=== PATIENT | female | born 1930 | race Caucasian/White ===

== ENCOUNTER 2016-05-29 21:59 | Inpatient (IN) | payer OTHER ==
[~2016-05-29] VITALS: Ht 160 cm; Wt 76.1 kg
[~2016-05-29 21:59] MED LIST: AMIO200T4 PO; ASPCH81X PO; CALC-220 PO; CHOL1000 PO; COCO1CAP PO; CRG125 PO; LSN20 PO; MAGN1TAB41 PO; OMEG12006 PO
[2016-05-30] VITALS (8 sets, daily range): BP systolic 108–151; BP diastolic 69–86; PULSE 60–65; TEMP 36.6–37.1; O2SAT 90–98; Ht 160 cm; Wt 76.1 kg
[2016-05-30] MEDS ORDERED: METHYLPREDNISOLONE 125 MG VIAL IV STA (00:09)
[2016-05-30] MEDS ORDERED: ALBUT/IPRATROP 3MG/0.5MG NEB 3 ML VIAL INH STA (00:09)
[2016-05-30 00:46] LABS: BASO % 0.5 %; BASO ABS # 0.03 K/uL (0-0.2); COMPLETE YES; EOS % 2.1 %; HEMATOCRIT 42.9 % (37-47); IG% 0.2 %; LYMPH % 14.8 %; LYMPH ABS # 0.98 K/uL (1.2-3.4); MEAN CELL VOLUME 94.1 fL (80-100); MEAN CORPUSCULAR HEMOGLOBIN 32.2 pg (25-34); MEAN CORPUSCULAR HGB CONC 34.3 g/dl (32-36); MEAN PLATELET VOLUME 11.2 fL (7.4-10.4); MONO % 7.2 %; NEUT % 75.2 %; PLATELET COUNT 135 K/uL (130-400); RED BLOOD COUNT 4.56 M/uL (4.2-5.4); WHITE BLOOD COUNT 6.63 K/uL (4.8-10.8)
[2016-05-30] MEDS ORDERED: ASPI81TA28 PO (00:56)
[2016-05-30] MEDS ORDERED: AZITTAB PO (00:56)
[2016-05-30] MEDS ORDERED: DLSYL PO (00:56)
[2016-05-30] MEDS ORDERED: CARV12.52 PO (00:56)
[2016-05-30] MEDS ORDERED: CALC-354 PO (00:56)
[2016-05-30 01:05] LABS: BUN/CREATININE RATIO 14.8 (10-20); CALCIUM 8.9 mg/dl (8.5-10.1); CREATININE 1.4 mg/dl (0.60-1.20); MAGNESIUM 2.2 mg/dl (1.8-2.4); POTASSIUM 4.2 mmol/L (3.5-5.1)
[2016-05-30 01:10] LABS: CKMB/CK RATIO 1.7 (0-3.0)
[2016-05-30] MEDS ORDERED: FUROSEMIDE 40 MG/4 ML VIAL IV STA (01:55)
[2016-05-30] MEDS ORDERED: CARVEDILOL 12.5 MG TAB PO ONE (02:30)
--- NOTE | 2016-05-30 02:39 | EMERGENCY ROOM VISIT NOTE ---
History Report prepared by Judd: Julien Nuñez Under the Supervision of: Dr. Jessica Marrero M.D. First contact with patient: 00:01 Chief Complaint: RESPIRATORY PROBLEMS Stated Complaint: TROUBLE BREATHING Nursing Triage Summary: pt reports cold sx cough congestion , to urgent care on sun. given zpak , not feeling better , increased exertional sob History of Present Illness The patient is a 86 year old female who presents to the Emergency Room with complaints of persistent respiratory problems beginning three days ago. She also complains of a productive "wheezing" cough. She was seen at an urgent-care clinic yesterday and was discharged on a Zpak and an inhaler. The patient is unsure as to whether she has had a fever or not. Nothing has improved her symptoms and she believes that her symptoms are actually worsening. She denies any chest pain. The patient has a pacemaker in place for atrial fibrillation. She is not on any blood thinners, but states that she was previous on Coumadin over 10 years ago. Source of History: patient Onset: three days ago Quality: other (respiratory problems) Timing: worsening, other (persistent) Modifying Factors (Relieving): other (none) Associated Symptoms: + cough (productive), No chest pain Review of Systems See HPI for pertinent positives & negatives. A total of 10 systems reviewed and were otherwise negative. Past Medical & Surgical Medical Problems: (1) Apical variant hypertrophic cardiomyopathy (2) CKD (chronic kidney disease), stage III (3) Diastolic CHF, chronic (4) DJD of right shoulder (5) Dyslipidemia (6) Dyspnea (7) History of pulmonary embolism (8) History of stroke (9) History of ventricular tachycardia (10) Hypertension (11) Palpitations (12) Rotator cuff tear Surgical Problems: (1) History of right shoulder replacement (2) Status post cardiac catheterization (3) Status post cholecystectomy (4) Status post hysterectomy (5) Status post implantation of automatic cardioverter/defibrillator (AICD) Family History COPD (chronic obstructive pulmonary disease) FATHER Stroke MOTHER Social History Smoking Status: Never Smoker Drug Use: none Marital Status: Housing Status: lives with family Occupation Status: retired Current/Historical Medications Scheduled Amiodarone Hcl (Cordarone), 200 MG PO QAM Aspirin (Aspirin Ec), 81 MG PO DAILY Azithromycin (Zithromax Z-Elie), 1 PKT PO UD Calcium Carbonate-Cholecalcife (Caltrate 600+D), 1 TAB PO DAILY Carvedilol (Coreg), 12.5 MG PO BID Cholecalciferol (Vitamin D3), Unknown Dose PO DAILY Coconut Oil (Coconut Oil Organic), 1 CAP PO DAILY Furosemide (Furosemide), 20 MG PO DAILY Lisinopril (Lisinopril), 20 MG PO QAM Magnesium Oxide (Magnesium), 400 MG PO QPM [place]-3 Fatty Acids ([place] 3), 1,000 MG PO QAM Scheduled PRN Dextromethorphan Polymr Complx (Delsym), Unknown Dose PO DIRECTED PRN for Cough Allergies Coded Allergies: Penicillins (Verified Allergy, Mild, FACIAL SWELLING, 05/30/16) Levofloxacin (Verified Allergy, Unknown, ? questionable tendon issues, ) Patient feels she had tendon issues since taking Levaquin (not documented)- patient can tolerate Levaquin but prefers not to have it unless absolutely necessary Physical Exam Vital Signs Date Time Temp Pulse Resp B/P Pulse Ox O2 Delivery O2 Flow Rate FiO2 05/30/16 02:07 61 22 190/109 94 Room Air 05/30/16 00:56 60 18 203/99 89 Room Air 05/30/16 00:54 61 05/29/16 22:07 36.9 68 18 172/96 96 Room Air Physical Exam Vital signs reviewed. General: Well-appearing female, in no significant distress. HEENT: No scleral icterus, PERRLA, neck supple. Atraumatic. Cardiovascular: Regular rate and rhythm, no extra sounds. Pulmonary: Rhonchi throughout the lungs bilaterally. Dry cough noted. Abdomen: Soft, nontender, nondistended, positive bowel sounds. Musculoskeletal: Atraumatic, no peripheral edema. Neurologic: Patient awake alert and oriented x 3, full strength in all 4 extremities. Cranial nerves 2 through 12 grossly intact. Skin: Warm, dry, no rash Medical Decision & Procedures ER Provider Diagnostic Interpretation: One View Chest X-ray interpreted by me: Pacemaker in place. Left costophrenic angle is cut off. Right shoulder replacement. No focal lung consolidation. No evidence of failure. Laboratory Results Test 05/30/16 00:30 05/30/16 00:39 05/30/16 00:50 RDW Standard Deviation 56.6 fL (36.4-46.3) RDW Coefficient of Variation 16.4 % (11.5-14.5) White Blood Count 6.63 K/uL (4.8-10.8) Red Blood Count 4.56 M/uL (4.2-5.4) Hemoglobin 14.7 g/dL (12.0-16.0) Hematocrit 42.9 % (37-47) Mean Corpuscular Volume 94.1 fL (80-100) Mean Corpuscular Hemoglobin 32.2 pg (25-34) Mean Corpuscular Hemoglobin Concent 34.3 g/dl (32-36) Platelet Count 135 K/uL (130-400) Mean Platelet Volume 11.2 fL (7.4-10.4) Neutrophils (%) (Auto) 75.2 % Lymphocytes (%) (Auto) 14.8 % Monocytes (%) (Auto) 7.2 % Eosinophils (%) (Auto) 2.1 % Basophils (%) (Auto) 0.5 % Neutrophils # (Auto) 4.99 K/uL (1.4-6.5) Lymphocytes # (Auto) 0.98 K/uL (1.2-3.4) Monocytes # (Auto) 0.48 K/uL (0.11-0.59) Eosinophils # (Auto) 0.14 K/uL (0-0.5) Basophils # (Auto) 0.03 K/uL (0-0.2) Immature Granulocyte % (Auto) 0.2 % Immature Granulocyte # (Auto) 0.01 K/uL (0.00-0.02) Prothrombin Time 11.2 SECONDS (9.0-12.0) Prothromb Time International Ratio 1.0 (0.9-1.1) Activated Partial Thromboplast Time 27.8 SECONDS (21.0-31.0) Partial Thromboplastin Ratio 1.1 Est Creatinine Clear Calc Drug Dose 30.0 ml/min Magnesium Level 2.2 mg/dl (1.8-2.4) Total Bilirubin 0.7 mg/dl (0.2-1) Direct Bilirubin 0.2 mg/dl (0-0.2) Aspartate Amino Transf (AST/SGOT) 63 U/L (15-37) Alanine Aminotransferase (ALT/SGPT) 66 U/L (12-78) Alkaline Phosphatase 73 U/L (45-117) Total Creatine Kinase 143 U/L (26-192) Creatine Kinase MB 2.4 ng/ml (0.5-3.6) Creatine Kinase MB Ratio 1.7 (0-3.0) Total Protein 7.5 gm/dl (6.4-8.2) Albumin 3.7 gm/dl (3.4-5.0) Bedside Troponin I 0.000 ng/ml (0-0.045) GU-Uem-V-Type Natriuretic Peptide 4336 pg/ml (0-1800) Influenza Type A (RT-PCR) Neg for Influ A (NEG) Influenza Type A Antigen Neg for Influ A (NEG) Influenza Type B Antigen Neg for Influ B (NEG) Influenza Type B (RT-PCR) Neg for Influ B (NEG) Laboratory results per my review. Medications Administered Medications (Trade) Dose Ordered Sig/Henry Route Start Time Stop Time Status Last Admin Dose Admin Albuterol/ Ipratropium (Duoneb) 3 ml NOW STAT INH 05/30/16 00:09 05/30/16 00:11 DC 05/30/16 00:55 3 ML Methylprednisolone Sodium Succinate (Solu-Medrol IV) 125 mg NOW STAT IV 05/30/16 00:09 05/30/16 00:11 DC 05/30/16 00:55 125 MG Furosemide (Lasix Inj) 40 mg NOW STAT IV 05/30/16 01:55 05/30/16 01:56 DC 05/30/16 02:07 40 MG Carvedilol (Coreg Tab) 12.5 mg NOW ONCE PO 05/30/16 02:30 05/30/16 02:31 DC 05/30/16 02:36 12.5 MG ECG Indication: SOB/dyspnea Rate (beats per minute): 60 Rhythm: other (atrially paced rhythm) Findings: other (Prolonged AV conduction. Non-specific ST changes. ) ED Course 0005: Past medical records reviewed. The patient was evaluated in room A3. A complete history and physical examination was performed. 0009: Ordered Solu-Medrol IV 125 mg IV, DuoNeb 3 mL INH. 0155: Ordered Lasix Inj 40 mg IV. 0230: Ordered Coreg Tab 12.5 mg PO. Upon reevaluation, the patient is resting comfortably. I discussed laboratory and radiographic results with her. She verbalized agreement of the treatment plan. I spoke with Dr. Dean of the [facility] Hospitalist Service. The patient will be evaluated for further management and care. Medical Decision Differential diagnosis: Etiologies such as infections, reactive airway disease, pneumonia, pneumothorax , COPD, CHF, cardiac ischemia, pulmonary embolism, musculoskeletal, gastrointestinal, as well as others were entertained. This patient was evaluated and appeared to be in no significant distress. She is sitting up at the bedside with wheezes to the bilateral lung lowe. Patient was given a DuoNeb treatment and IV Solu-Medrol. Chest x-ray was performed and to my interpretation reveals mild vascular congestion. Patient has a history of diastolic heart failure. She has a pacemaker. She was given 40 mg of IV Lasix. There is no evidence of focal lung consolidation. She has been taking azithromycin without any improvement. The patient was given a dose of Coreg 12.5 mg by mouth. This is her home dose. Due to the level of the patient's discomfort, her marked hypertension and shortness of breath, she will be evaluated by the hospitalist service for further management. Patient family are aware of the plan and agree. Impression Primary Impression: Reactive airway disease with wheezing Additional Impression: Bronchitis Scribe Attestation The scribe's documentation has been prepared under my direction and personally reviewed by me in its entirety. I confirm that the note above accurately reflects all work, treatment, procedures, and medical decision making performed by me. Departure Information Dispostion Being Evaluated By Hospitalist Referrals Cherry Alas M.D. (PCP) Patient Instructions My [facility] Problem Qualifiers Primary Impression: Reactive airway disease with wheezing Asthma severity: mild persistent Asthma complication type: with acute exacerbation Qualified Codes: J45.31 - Mild persistent asthma with (acute) exacerbation
--- NOTE | 2016-05-30 03:04 | History and Physical ---
History & Physical Date & Time of Service: May 30, 2016 at 03:04 . Chief Complaint: cough, SOB . Primary Care Physician: Cherry Alas M.D. . History of Present Illness Source: patient, clinic records, hospital records 86-year-old female followed by Dr. Alas for Family Medicine. History of hypertrophic cardiomyopathy, diastolic CHF, hypertension, ventricular tachycardia, and other problems noted below. Developed a cough about 7 days prior to admission. Cough is productive of yellow sputum. No associated fevers, chills, sweats, chest pain. She was prescribed azithromycin and also took an [id number] cough medication. Came to the ED tonight because of worsening cough and worsening dyspnea. . Past Medical/Surgical History Chronic Medical Problems: (1) Apical variant hypertrophic cardiomyopathy Status: Chronic (2) CKD (chronic kidney disease), stage III Status: Chronic (3) Diastolic CHF, chronic Status: Chronic (4) Dyslipidemia Status: Chronic (5) History of pulmonary embolism Status: Chronic (6) History of stroke Status: Chronic (7) History of ventricular tachycardia Permanent Comment: AICD in situ Status: Chronic (8) Hypertension Status: Chronic Surgical Problems: (1) History of right shoulder replacement Status: Chronic (2) Status post cardiac catheterization Permanent Comment: minimal nonobstructive CAD Status: Chronic (3) Status post cholecystectomy Status: Chronic (4) Status post hysterectomy Status: Chronic (5) Status post implantation of automatic cardioverter/defibrillator (AICD) Status: Chronic . Family History FATHER COPD (chronic obstructive pulmonary disease) MOTHER Stroke Social History Smoking Status: Never Smoker Alcohol Use: none Drug Use: none Marital Status: Housing status: lives alone Occupational Status: retired Immunizations History of Influenza Vaccine: Yes History of Tetanus Vaccine?: Unknown History of Pneumococcal: Yes History of Hepatitis B Vaccine: Unknown Allergies Coded Allergies: Penicillins (Verified Allergy, Mild, FACIAL SWELLING, 05/30/16) Levofloxacin (Verified Allergy, Unknown, ? questionable tendon issues, ) Patient feels she had tendon issues since taking Levaquin (not documented)- patient can tolerate Levaquin but prefers not to have it unless absolutely necessary Home Medications Scheduled Amiodarone Hcl (Cordarone), 200 MG PO QAM Aspirin (Aspirin Ec), 81 MG PO DAILY Azithromycin (Zithromax Z-Elie), 1 PKT PO UD Calcium Carbonate-Cholecalcife (Caltrate 600+D), 1 TAB PO DAILY Carvedilol (Coreg), 12.5 MG PO BID Cholecalciferol (Vitamin D3), Unknown Dose PO DAILY Coconut Oil (Coconut Oil Organic), 1 CAP PO DAILY Furosemide (Furosemide), 20 MG PO DAILY Lisinopril (Lisinopril), 20 MG PO QAM Magnesium Oxide (Magnesium), 400 MG PO QPM [place]-3 Fatty Acids ([place] 3), 1,000 MG PO QAM Scheduled PRN Dextromethorphan Polymr Complx (Delsym), Unknown Dose PO DIRECTED PRN for Cough Review of Systems Constitutional: + fatigue, No chills, No fever, No weight loss Eyes: No worsening of vision ENT: No nasal symptoms, No sore throat Respiratory: + cough, + shortness of breath, + sputum Cardiovascular: + edema (chronic mild edema right ankle), No chest pain, No palpitations Abdomen: + diarrhea (intermittent), No GI bleeding, No nausea, No pain, No vomiting Musculoskeletal: No joint pain, No swelling Genitourinary - Female: No dysuria, No hematuria Endocrine: No excessive thirst, No excessive urination Hematologic / Lymphatic: + abnormal bleeding/bruising (bruises easily), No swollen lymph nodes Integumentary: No new/changing skin lesions, No rash Physical Exam Vital Signs Date Time Temp Pulse Resp B/P Pulse Ox O2 Delivery O2 Flow Rate FiO2 05/30/16 02:07 61 22 190/109 94 Room Air 05/30/16 00:56 60 18 203/99 89 Room Air 05/30/16 00:54 61 05/29/16 22:07 36.9 68 18 172/96 96 Room Air General Appearance: WD/WN, + mild distress Head: normocephalic, atraumatic Eyes: normal inspection, PERRL, EOMI, sclerae normal ENT: normal ENT inspection, hearing grossly normal, pharynx normal Neck: supple, no adenopathy, thyroid normal, no JVD, trachea midline Respiratory/Chest: no respiratory distress, no accessory muscle use, + rhonchi (scattered), + wheezing (diffuse moderate) Cardiovascular: regular rate, rhythm, no edema, no gallop, no JVD Abdomen/GI: normal bowel sounds, non tender, soft, no organomegaly, no pulsatile mass Extremities/Musculoskelatal: normal inspection, no calf tenderness, no pedal edema Neurologic/Psych: blade balancer II-XII nml as tested (PERRL, EOMI, no facial palsy, no dysarthria), no motor/sensory deficits (motor strength upper and lower extremities grossly intact), alert, normal mood/affect, oriented x 3 Skin: normal color, warm/dry, no rash Lymphatic: no adenopathy Diagnostics Laboratory Results Results Past 24 Hours Test 05/30/16 00:30 05/30/16 00:39 05/30/16 00:50 Range/Units White Blood Count 6.63 4.8-10.8 K/uL Red Blood Count 4.56 4.2-5.4 M/uL Hemoglobin 14.7 12.0-16.0 g/dL Hematocrit 42.9 37-47 % Mean Corpuscular Volume 94.1 80-100 fL Mean Corpuscular Hemoglobin 32.2 25-34 pg Mean Corpuscular Hemoglobin Concent 34.3 32-36 g/dl Platelet Count 135 130-400 K/uL Mean Platelet Volume 11.2 7.4-10.4 fL Neutrophils (%) (Auto) 75.2 % Lymphocytes (%) (Auto) 14.8 % Monocytes (%) (Auto) 7.2 % Eosinophils (%) (Auto) 2.1 % Basophils (%) (Auto) 0.5 % Neutrophils # (Auto) 4.99 1.4-6.5 K/uL Lymphocytes # (Auto) 0.98 1.2-3.4 K/uL Monocytes # (Auto) 0.48 0.11-0.59 K/uL Eosinophils # (Auto) 0.14 0-0.5 K/uL Basophils # (Auto) 0.03 0-0.2 K/uL RDW Standard Deviation 56.6 36.4-46.3 fL RDW Coefficient of Variation 16.4 11.5-14.5 % Immature Granulocyte % (Auto) 0.2 % Immature Granulocyte # (Auto) 0.01 0.00-0.02 K/uL Sodium Level 140 136-145 mmol/L Potassium Level 4.2 3.5-5.1 mmol/L Chloride Level 104 98-107 mmol/L Carbon Dioxide Level 28 21-32 mmol/L Anion Gap 8.0 3-11 mmol/L Blood Urea Nitrogen 21 7-18 mg/dl Creatinine 1.40 0.60-1.20 mg/dl Est Creatinine Clear Calc Drug Dose 30.0 ml/min Estimated GFR () 39.9 Estimated GFR (Non- 34.4 BUN/Creatinine Ratio 14.8 10-20 Random Glucose 89 70-99 mg/dl Calcium Level 8.9 8.5-10.1 mg/dl Magnesium Level 2.2 1.8-2.4 mg/dl Total Bilirubin 0.7 0.2-1 mg/dl Direct Bilirubin 0.2 0-0.2 mg/dl Aspartate Amino Transf (AST/SGOT) 63 15-37 U/L Alanine Aminotransferase (ALT/SGPT) 66 12-78 U/L Alkaline Phosphatase 73 45-117 U/L Total Creatine Kinase 143 26-192 U/L Creatine Kinase MB 2.4 0.5-3.6 ng/ml Creatine Kinase MB Ratio 1.7 0-3.0 Total Protein 7.5 6.4-8.2 gm/dl Albumin 3.7 3.4-5.0 gm/dl Bedside Troponin I 0.000 0-0.045 ng/ml SF-Zfp-[id number]-Type Natriuretic Peptide 4336 0-1800 pg/ml Influenza Type A Antigen Neg for Influ A NEG Influenza Type B Antigen Neg for Influ B NEG Microbiology Results 05/30/16 Blood Culture, Received Pending 05/30/16 Blood Culture, Received Pending Diagnostic Radiology Chest x-ray reviewed by the undersigned (preliminary interpretation): Mild cardiomegaly, no infiltrates, effusions, CHF. Left subclavian pacemaker/defibrillator. . EKG EKG performed at 00:47 reviewed and demonstrated atrial paced rhythm at 60/ minute, nonspecific ST/T-wave abnormalities with biphasic T waves in V3-4. . Impression Assessment and Plan COUGH / SOB No infiltrates or pulmonary edema on chest x-ray. Cough and dyspnea most likely due to tracheobronchitis. Patient is very symptomatic and has failed outpatient management. She has significant bronchospasm. 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 Change antibiotic therapy to doxycycline. Methylprednisolone for bronchospasm. Guaifenesin for mucolysis. Try to avoid some palpable medical bronchodilators due to history of ventricular tachycardia. Lisinopril was started in February. Doubt [place] cough, but consider if unexplained cough persists. LOOSE STOOLS Check C. difficile PCR. CHF History of chronic left ventricular diastolic heart failure, underlying hypertrophic cardiomyopathy. Compensated. Continue furosemide. HISTORY OF VENTRICULAR TACHYCARDIA Paced atrial rhythm in ED. Continue carvedilol and amiodarone. Has AICD. HYPERTENSION BPs elevated ED. Continue carvedilol and lisinopril. VTE PROPHYLAXIS Moderate risk for VTE. SQ enoxaparin. Ambulate. RESUSCITATION STATUS Discussed with patient. She does not have a living will. She would like resuscitation attempted in the event of a cardiopulmonary arrest if there is a reasonable chance of a meaningful recovery, but does not want prolonged extraordinary measures if prognosis is poor. Therefore, code status = "Level 1" (full resuscitation). DISPOSITION Admit to Med-Surg Unit. Expected discharge to home. Family Medicine follow-up with Dr. Alas. . VTE Prophylaxis Given or contraindicated: Enoxaparin (Lovenox)SQ
[2016-05-30 03:07] LABS: INFLUENZA A PCR Neg for Influ A (NEG); INFLUENZA B PCR Neg for Influ B (NEG)
[2016-05-30] MEDS ORDERED: ACETAMINOPHEN 325 MG TAB PO PRN (03:15)
[2016-05-30] MEDS ORDERED: NITROGLYCERIN 0.4 MG SL PER TAB CHARGE SL PRN (03:15)
[2016-05-30 03:22] LABS: PARTIAL THROMBOPLASTIN RATIO 1.1; PROTHROMBIN TIME (PATIENT) 11.2 SECONDS (9.0-12.0)
[2016-05-30] MEDS ORDERED: BENZONATATE 100MG CAP PO PRN (04:45)
[2016-05-30] MEDS ORDERED: GUAIFENESIN SUGAR FREE 100 MG/5 ML UDC PO PRN (04:45)
--- NOTE | 2016-05-30 06:46 | DIAGNOSTIC IMAGING REPORT ---
CHEST ONE VIEW PORTABLE CLINICAL HISTORY: SOB, rhonchi COMPARISON STUDY: 11/24/2015 FINDINGS: The heart is borderline enlarged. There is a left subclavian pacer/defibrillator present. There is no failure. There is no focal pulmonary consolidation. There are no pleural effusions. There are postsurgical changes of a right shoulder arthroplasty.[ IMPRESSION: No active disease in the chest. Electronically signed by: Akira Crump M.D. 05/30/2016 6:44 AM Dictated Date/Time: 05/30/2016 6:44 AM
[2016-05-30] MEDS: DOXYCYCLINE HYCLATE 100 MG CAP PO SCH ×2 (08:57→21:01)
[2016-05-30] MEDS: AMIODARONE 200 MG TAB PO SCH (08:57)
[2016-05-30] MEDS: CARVEDILOL 12.5 MG TAB PO SCH ×2 (08:57→21:01)
[2016-05-30] MEDS: ASPIRIN 81 MG ECTAB PO SCH (08:57)
[2016-05-30] MEDS: LISINOPRIL 20 MG TAB PO SCH (08:58)
[2016-05-30] MEDS: METHYLPREDNISOLONE IV 20 MG in SYRINGE 0 ML IV SCH ×2 (08:59→20:56)
--- NOTE | 2016-05-30 09:06 | Progress Note ---
Subjective Date of Service: May 30, 2016. Subjective Pt evaluation today including: conversation w/ patient, physical exam, lab review, review of studies, review of inpatient medication list Saw/examined the patient in room 103 She is doing well today; +productive cough continues no significant shortness of breath Denies chest pain or palpitations Problem List Medical Problems: (1) Abdominal pain Status: Acute (2) Abnormal EKG Status: Acute (3) Anterior chest wall pain Status: Acute (4) CHF (congestive heart failure) Status: Acute (5) Diverticulitis Status: Acute (6) Dyspnea on exertion Status: Acute (7) Vomiting Status: Acute Review of Systems Constitutional: No chills, No fever, No weakness ENT: No nasal symptoms, No sore throat, No trouble swallowing Respiratory: + cough, + shortness of breath, + sputum, No dyspnea at rest, No dyspnea on exertion, No hemoptysis, No wheezing Cardiac: + edema, No chest pain, No palpitations Abdomen: No diarrhea, No nausea, No pain, No vomiting Heme: No abnormal bleeding/bruising Medications Current Inpatient Medications Medications (Trade) Dose Ordered Sig/Henry Route Start Time Stop Time Status Last Admin Dose Admin Acetaminophen (Tylenol Tab) 650 mg Q4H PRN PO 05/30/16 03:15 06/29/16 03:14 Nitroglycerin (Nitrostat Tab) 0.4 mg UD PRN SL 05/30/16 03:15 06/29/16 03:14 Amiodarone HCl (Cordarone Tab) 200 mg QAM PO 05/30/16 09:00 06/29/16 08:59 Aspirin (Ecotrin Tab) 81 mg DAILY PO 05/30/16 09:00 06/29/16 08:59 Carvedilol (Coreg Tab) 12.5 mg BID PO 05/30/16 09:00 06/29/16 08:59 Lisinopril (Zestril Tab) 20 mg QAM PO 05/30/16 09:00 06/29/16 08:59 Magnesium Oxide (Mag-Ox Tab) 400 mg QPM PO 05/30/16 21:00 06/29/16 20:59 Doxycycline Hyclate 100 mg 100 mg BID PO 05/30/16 09:00 06/06/16 08:59 Methylprednisolone Sodium Succinate/ Syringe (Solu-Medrol IV/ Syringe) 0.32 ml @ 1.5 mls/min BID IV 05/30/16 09:00 06/29/16 08:59 Benzonatate (Tessalon Perles Cap) 100 mg Q8H PRN PO 05/30/16 04:45 06/29/16 04:44 Guaifenesin (Robitussin Sugar Free Syrup) 100 mg Q6H PRN PO 05/30/16 04:45 06/29/16 04:44 Objective Vital Signs Date Time Temp Pulse Resp B/P Pulse Ox O2 Delivery O2 Flow Rate FiO2 05/30/16 04:05 37.1 65 20 151/86 94 Room Air 05/30/16 03:58 60 23 146/77 94 05/30/16 03:41 60 23 146/77 94 Room Air 05/30/16 02:07 61 22 190/109 94 Room Air 05/30/16 00:56 60 18 203/99 89 Room Air 05/30/16 00:54 61 05/29/16 22:07 36.9 68 18 172/96 96 Room Air Physical Exam General Appearance: no apparent distress Respiratory/Chest: no respiratory distress, no accessory muscle use, + wheezing (coarse end expiratory wheezing diffusely) Cardiovascular: regular rate, rhythm, no JVD, no murmur Abdomen: normal bowel sounds, non tender, soft Extremities: + pertinent finding (+1 pitting edema b/l LE) Neurologic/Psychiatric: no motor/sensory deficits, alert, normal mood/affect Skin: normal color Lymphatic: no adenopathy Laboratory Results Last 24 Hours Test 05/30/16 00:30 05/30/16 00:39 05/30/16 00:50 White Blood Count 6.63 K/uL Red Blood Count 4.56 M/uL Hemoglobin 14.7 g/dL Hematocrit 42.9 % Mean Corpuscular Volume 94.1 fL Mean Corpuscular Hemoglobin 32.2 pg Mean Corpuscular Hemoglobin Concent 34.3 g/dl Platelet Count 135 K/uL Mean Platelet Volume 11.2 fL Neutrophils (%) (Auto) 75.2 % Lymphocytes (%) (Auto) 14.8 % Monocytes (%) (Auto) 7.2 % Eosinophils (%) (Auto) 2.1 % Basophils (%) (Auto) 0.5 % Neutrophils # (Auto) 4.99 K/uL Lymphocytes # (Auto) 0.98 K/uL Monocytes # (Auto) 0.48 K/uL Eosinophils # (Auto) 0.14 K/uL Basophils # (Auto) 0.03 K/uL RDW Standard Deviation 56.6 fL RDW Coefficient of Variation 16.4 % Immature Granulocyte % (Auto) 0.2 % Immature Granulocyte # (Auto) 0.01 K/uL Prothrombin Time 11.2 SECONDS Prothromb Time International Ratio 1.0 Activated Partial Thromboplast Time 27.8 SECONDS Partial Thromboplastin Ratio 1.1 Sodium Level 140 mmol/L Potassium Level 4.2 mmol/L Chloride Level 104 mmol/L Carbon Dioxide Level 28 mmol/L Anion Gap 8.0 mmol/L Blood Urea Nitrogen 21 mg/dl Creatinine 1.40 mg/dl Est Creatinine Clear Calc Drug Dose 30.0 ml/min Estimated GFR () 39.9 Estimated GFR (Non- 34.4 BUN/Creatinine Ratio 14.8 Random Glucose 89 mg/dl Calcium Level 8.9 mg/dl Magnesium Level 2.2 mg/dl Total Bilirubin 0.7 mg/dl Direct Bilirubin 0.2 mg/dl Aspartate Amino Transf (AST/SGOT) 63 U/L Alanine Aminotransferase (ALT/SGPT) 66 U/L Alkaline Phosphatase 73 U/L Total Creatine Kinase 143 U/L Creatine Kinase MB 2.4 ng/ml Creatine Kinase MB Ratio 1.7 Total Protein 7.5 gm/dl Albumin 3.7 gm/dl Bedside Troponin I 0.000 ng/ml GL-Ysv-N-Type Natriuretic Peptide 4336 pg/ml Influenza Type A (RT-PCR) Neg for Influ A Influenza Type A Antigen Neg for Influ A Influenza Type B Antigen Neg for Influ B Influenza Type B (RT-PCR) Neg for Influ B Assessment and Plan This is an 86 year old female with PMH of apical variant hypertrophic cardiomyopathy, hx. of v-tach s/p AICD, HTN, HLD, Diastolic CHF, CKD stage 3 presents with cough and shortness of breath Acute Bronchitis vs. Viral URI patient presents with a productive cough CXR with no acute process slightly hypoxic on admission, though saturating well now on room air hemodynamically stable and afebrile had seen urgent care on May 28 - was prescribed a Z-myke agree with switching to doxycycline low dose IV steroids for now clinically feeling much better than admission will transfer to med/surg Chronic Diastolic CHF BNP elevated on admission given one dose of IV Lasix in the ER slight edema in the lower extremities - baseline/chronic CXR - no acute process no need for further diuresis continue LA-I and b-imelda at baseline HTN presented with elevated blood pressures likely due to missed medications continue b-imelda and LA-I at home dose monitor BP - uncontrolled overnight CKD stage 3 creat at 1.4; around baseline monitor and avoid nephrotoxic agents when possible Hx. of Sustained V-tach s/p AICD continue amiodarone at home dose DVT ppx SCDs/ambulation FULL CODE plan to transfer to med/surg today (05/30) - if there is improvement, may discharge home in AM (05/31)
[2016-05-30] MEDS ORDERED: LSX20 PO (12:25)
[2016-05-30] MEDS ORDERED: FUROSEMIDE 20 MG TAB PO ONE (12:25)
[2016-05-30] MEDS ORDERED: VANCOMYCIN INJ 1,600 MG in SODIUM CHLORIDE 0.9% 500ML 500 ML IV ONE (20:15)
--- NOTE | 2016-05-30 20:17 | Pharmacy Progress Note ---
Pharmacy Antibiotic Consult Date of Service: May 30, 2016. Pharmacy Dosing Scope Pharmacy is consulted to initiate vancomycin IV dosing therapy, order appropriate labs and adjust drug dose/frequency. Subjective The patient is a 86 year old female admitted on May 30, 2016 at 03:07. One of two blood cultures is positive for gram positive cocci. Objective Height (Feet): 5 Height (Inches): 3.00 Weight (Kilograms): 77.600 Lab Results (24hrs): Laboratory Tests Test 05/30/16 00:30 BUN/Creatinine Ratio 14.8 Blood Urea Nitrogen 21 mg/dl Creatinine 1.40 mg/dl White Blood Count 6.63 K/uL Red Blood Count 4.56 M/uL Hemoglobin 14.7 g/dL Hematocrit 42.9 % Mean Corpuscular Volume 94.1 fL Mean Corpuscular Hemoglobin 32.2 pg Mean Corpuscular Hemoglobin Concent 34.3 g/dl Platelet Count 135 K/uL Mean Platelet Volume 11.2 fL Neutrophils (%) (Auto) 75.2 % Lymphocytes (%) (Auto) 14.8 % Monocytes (%) (Auto) 7.2 % Eosinophils (%) (Auto) 2.1 % Basophils (%) (Auto) 0.5 % Neutrophils # (Auto) 4.99 K/uL Lymphocytes # (Auto) 0.98 K/uL Monocytes # (Auto) 0.48 K/uL Eosinophils # (Auto) 0.14 K/uL Basophils # (Auto) 0.03 K/uL Micro Results: RUN DATE: 05/30/16 [facility] LAB PAGE 1 RUN TIME: 1931 Specimen Inquiry PATIENT: BEV MAJANO LOC: [facility] U # : [id number] AGE/SX: 86/F ROOM: [facility] REG : 05/30/[address]: Jenny Chapa DO : 1930 BED: 1 DIS : STATUS: ADM IN TLOC: SPEC #: [id number] LILIA: 05/30/16 STATUS: RES REQ #: [id number] RECD: 05/30/[address]: Jessica Marrero M.D. SOURCE: BLOOD ENTR: 05/30/[address] [facility] [address]: Cherry Alas M.D. [facility] ORDERED: BLOOD CULTURE Procedure Result Verified Site BLD CULT Preliminary 05/30/16 Organism 1 GRAM POSITIVE COCCI SENS SENSITIVITIES DEPENDENT ON FURTHER IDENTIFICATION Phoned Positive Blood Culture Gram Stain Report to GILBERT PEARCE on 05/30/16 At 1930 By KRISTIAN. Results were verbalized back to KRISTIAN. Assessment & Plan Loading dose: vancomycin 1600 mg IV X 1 dose then: Random level has been ordered for: around 10 am. Goal peak level estimate: between 35 - 40 mcg/mL. Goal trough level estimate: between 15 - 20 mcg/mL (indication: bacteremia). Pharmacy will continue to follow and will adjust dose/frequency as necessary. Thank you
[2016-05-30] MEDS ORDERED: ENOXAPARIN 30 MG/0.3 ML SYR SQ SCH (21:00)
[2016-05-30] MEDS ORDERED: MAGNESIUM OXIDE 400 MG TAB PO SCH (21:00)
[2016-05-31 06:54] VITALS: BP 164/84; PULSE 62; TEMP 36.6; O2SAT 95
[2016-05-31 08:00] VITALS: O2SAT 95
[2016-05-31] MEDS: LISINOPRIL 20 MG TAB PO SCH (08:00)
[2016-05-31] MEDS: ASPIRIN 81 MG ECTAB PO SCH (08:00)
[2016-05-31] MEDS: DOXYCYCLINE HYCLATE 100 MG CAP PO SCH (08:01)
[2016-05-31] MEDS: CARVEDILOL 12.5 MG TAB PO SCH (08:01)
[2016-05-31] MEDS: AMIODARONE 200 MG TAB PO SCH (08:01)
[2016-05-31] MEDS: METHYLPREDNISOLONE IV 20 MG in SYRINGE 0 ML IV SCH (08:09)
[2016-05-31 08:50] LABS: MEAN CELL VOLUME 92.3 fL (80-100); MEAN CORPUSCULAR HEMOGLOBIN 32.1 pg (25-34); MEAN CORPUSCULAR HGB CONC 34.8 g/dl (32-36); MEAN PLATELET VOLUME 12.1 fL (7.4-10.4); PLATELET COUNT 147 K/uL (130-400); RED BLOOD COUNT 4.55 M/uL (4.2-5.4); WHITE BLOOD COUNT 11.66 K/uL (4.8-10.8)
[2016-05-31] MEDS ORDERED: FUROSEMIDE 20 MG TAB PO SCH (09:00)
[2016-05-31 09:19] LABS: BUN/CREATININE RATIO 19.9 (10-20); CALCIUM 8.9 mg/dl (8.5-10.1); CREATININE 1.5 mg/dl (0.60-1.20); POTASSIUM 3.7 mmol/L (3.5-5.1)
--- NOTE | 2016-05-31 10:01 | Clinical Documentation Query ---
CLINICAL DOCUMENTATION QUERY 86 year old female who was treated with IV Lasix in the ED. In your clinical opinion was this patient managed for: ( ) Acute on chronic diastolic CHF in setting of acute bronchitis treated and resolved with IV Lasix in ED ( ) Other explanation of clinical findings (Please Explain) ( ) Unable to determine (Please Define) ( ) Need to Discuss ( ) Not Agree The medical record reflects the following clinical findings, treatment, and risk factors. Clinical Indicators: Patient displayed rhonch and wheezes in presentation. ProBNAP 4336. Slight lower extremity edema Treatment: IV Lasix, telemetry, I/O's, and daily weights Risk Factors: Age, CHF history, and underling bronchitis. Please clarify and document your clinical opinion in the progress notes and discharge summary. Terms such as "probable", "suspected", "likely", "questionable", "possible", or "still to be ruled out" are acceptable. IF IN AGREEMENT, YOU MUST DOCUMENT ABOVE DIAGNOSTIC STATEMENT IN DAILY PROGRESS NOTES AND DISCHARGE SUMMARY. This document is not part of the patient's record. Thank You, Benjy Perea, RN [phone]
[2016-05-31] MEDS ORDERED: VANCOMYCIN CONSULT ACTIVE PRN (10:45)
--- NOTE | 2016-05-31 11:55 | Pharmacy Progress Note ---
Pharmacy Progress Note Date of Service May 31, 2016. Progress Note Assessment Item Value Date Time Blood Culture - Preliminary Resulted 05/30/16 0030 Blood Coag Neg Staphylococcus Blood Culture - Preliminary Resulted 05/30/16 0025 Blood NO GROWTH TO DATE. 86 year old female receiving Vancomycin for treatment of 1/2 positive blood cultures- originally GPC but now back as coag neg staph Day # 2 of antimicrobial therapy. Plan Vancomycin * Random level of 16.4 mcg/mL is therapeutic and indicates that patient is able to be re-dosed. * Even though renal function elevated, I believe we can still schedule a regimen. * Initiate 1000 mg IV every 24 hours- this is an aggressive interval but I backed off on the dose to try to keep patient to daily dosing. * Goal trough level for suspected bacteremia: 15 to 20 mcg/mL * Trough level will be ordered for: 06/02/16 @1130 prior to the 1200 dose. Pharmacy will continue to follow and will adjust dose/frequency as necessary. Thank you.
[2016-05-31] MEDS ORDERED: VANCOMYCIN INJ 1,000 MG in SODIUM CHLORIDE 0.9% 250ML 250 ML IV SCH (12:00)
--- NOTE | 2016-05-31 14:00 | Progress Note ---
Subjective Date of Service: May 31, 2016. Subjective Pt evaluation today including: conversation w/ patient, physical exam, lab review, review of studies, review of inpatient medication list Saw/examined the patient in room 250 Doing well, dry cough persists No shortness of breath today, no chest pain Problem List Medical Problems: (1) Abdominal pain Status: Acute (2) Abnormal EKG Status: Acute (3) Anterior chest wall pain Status: Acute (4) Bronchitis Status: Acute (5) CHF (congestive heart failure) Status: Acute (6) Diverticulitis Status: Acute (7) Dyspnea on exertion Status: Acute (8) Reactive airway disease with wheezing Status: Acute (9) Vomiting Status: Acute Review of Systems Constitutional: No chills, No fever, No weakness Respiratory: + cough, No dyspnea at rest, No dyspnea on exertion, No hemoptysis , No shortness of breath, No sputum, No wheezing Cardiac: No chest pain, No edema, No palpitations Medications Current Inpatient Medications Medications (Trade) Dose Ordered Sig/Henry Route Start Time Stop Time Status Last Admin Dose Admin Acetaminophen (Tylenol Tab) 650 mg Q4H PRN PO 05/30/16 03:15 06/29/16 03:14 Nitroglycerin (Nitrostat Tab) 0.4 mg UD PRN SL 05/30/16 03:15 06/29/16 03:14 Amiodarone HCl (Cordarone Tab) 200 mg QAM PO 05/30/16 09:00 06/29/16 08:59 05/31/16 08:01 200 MG Aspirin (Ecotrin Tab) 81 mg DAILY PO 05/30/16 09:00 06/29/16 08:59 05/31/16 08:00 81 MG Carvedilol (Coreg Tab) 12.5 mg BID PO 05/30/16 09:00 06/29/16 08:59 05/31/16 08:01 12.5 MG Lisinopril (Zestril Tab) 20 mg QAM PO 05/30/16 09:00 06/29/16 08:59 05/31/16 08:00 20 MG Magnesium Oxide (Mag-Ox Tab) 400 mg QPM PO 05/30/16 21:00 06/29/16 20:59 05/30/16 21:01 400 MG Doxycycline Hyclate 100 mg 100 mg BID PO 05/30/16 09:00 06/06/16 08:59 05/31/16 08:01 100 MG Methylprednisolone Sodium Succinate/ Syringe (Solu-Medrol IV/ Syringe) 0.32 ml @ 1.5 mls/min BID IV 05/30/16 09:00 06/29/16 08:59 05/31/16 08:09 1.5 MLS/MIN Benzonatate (Tessalon Perles Cap) 100 mg Q8H PRN PO 05/30/16 04:45 06/29/16 04:44 05/31/16 08:00 100 MG Guaifenesin (Robitussin Sugar Free Syrup) 100 mg Q6H PRN PO 05/30/16 04:45 06/29/16 04:44 05/31/16 08:00 100 MG Furosemide (Lasix Tab) 20 mg DAILY PO 05/31/16 09:00 06/30/16 08:59 05/31/16 08:01 20 MG Enoxaparin Sodium (Lovenox Inj) 30 mg HS SQ 05/30/16 21:00 06/29/16 20:59 05/30/16 21:02 30 MG Vancomycin HCl 1 ea 1 ea UD PRN N/A 05/31/16 10:45 06/30/16 10:44 Vancomycin HCl/ Sodium Chloride (Vancomycin Inj/ Nss 250ml) 270 ml @ 125 mls/hr Q24H IV 05/31/16 12:00 06/14/16 11:59 Objective Vital Signs Date Time Temp Pulse Resp B/P Pulse Ox O2 Delivery O2 Flow Rate FiO2 05/31/16 08:00 95 Room Air 2.0 05/31/16 06:54 36.6 62 18 164/84 95 Room Air 05/31/16 00:00 Room Air 05/30/16 23:18 36.7 60 20 131/80 93 Room Air 05/30/16 20:59 61 121/74 05/30/16 19:40 Room Air 05/30/16 16:00 Room Air 05/30/16 14:58 36.8 60 22 108/70 90 Room Air Physical Exam General Appearance: no apparent distress Respiratory/Chest: no respiratory distress, no accessory muscle use, + wheezing (end expiratory wheezing) Cardiovascular: regular rate, rhythm, no edema, no gallop, no JVD, no murmur Abdomen: normal bowel sounds, non tender, soft Extremities: normal inspection, no pedal edema Laboratory Results Last 24 Hours Test 05/31/16 08:20 05/31/16 10:00 White Blood Count 11.66 K/uL Red Blood Count 4.55 M/uL Hemoglobin 14.6 g/dL Hematocrit 42.0 % Mean Corpuscular Volume 92.3 fL Mean Corpuscular Hemoglobin 32.1 pg Mean Corpuscular Hemoglobin Concent 34.8 g/dl RDW Standard Deviation 55.1 fL RDW Coefficient of Variation 16.3 % Platelet Count 147 K/uL Mean Platelet Volume 12.1 fL Sodium Level 141 mmol/L Potassium Level 3.7 mmol/L Chloride Level 103 mmol/L Carbon Dioxide Level 29 mmol/L Anion Gap 9.0 mmol/L Blood Urea Nitrogen 30 mg/dl Creatinine 1.50 mg/dl Est Creatinine Clear Calc Drug Dose 27.3 ml/min Estimated GFR () 36.7 Estimated GFR (Non- 31.7 BUN/Creatinine Ratio 19.9 Random Glucose 146 mg/dl Calcium Level 8.9 mg/dl Random Vancomycin Level 16.4 mcg/ml Assessment and Plan This is an 86 year old female with PMH of apical variant hypertrophic cardiomyopathy, hx. of v-tach s/p AICD, HTN, HLD, Diastolic CHF, CKD stage 3 presents with cough and shortness of breath Acute Bronchitis vs. Viral URI 05/31 patient doing well +dry cough one set of blood cultures = coag negative staph likely contamination, afebrile, no significant leukocytosis will d/c home today with prednisone taper and doxycycline outpatient f/u with primary care on June 05 @ 2:50PM 05/30 patient presents with a productive cough CXR with no acute process slightly hypoxic on admission, though saturating well now on room air hemodynamically stable and afebrile had seen urgent care on May 28 - was prescribed a Z-myke agree with switching to doxycycline low dose IV steroids for now clinically feeling much better than admission will transfer to med/surg Chronic Diastolic CHF BNP elevated on admission given one dose of IV Lasix in the ER slight edema in the lower extremities - baseline/chronic CXR - no acute process no need for further diuresis continue LA-I and b-imelda at baseline HTN presented with elevated blood pressures likely due to missed medications continue b-imelda and LA-I at home dose monitor BP - uncontrolled overnight CKD stage 3 creat at 1.4; around baseline monitor and avoid nephrotoxic agents when possible Hx. of Sustained V-tach s/p AICD continue amiodarone at home dose DVT ppx SCDs/ambulation FULL CODE plan to transfer to med/surg today (05/30) - if there is improvement, may discharge home in AM (05/31)
[2016-05-31] MEDS ORDERED: RBTUDL5 PO (14:03)
[2016-05-31] MEDS ORDERED: DXY100 PO (14:03)
[2016-05-31] MEDS ORDERED: BENZ100C7 PO (14:03)
[2016-05-31] MEDS ORDERED: PRED10TA PO (14:03)
--- NOTE | 2016-05-31 14:07 | Discharge Instructions ---
Discharge Instructions Date of Service May 31, 2016. Admission Reason for Admission: Dyspnea Discharge Discharge Diagnosis / Problem: Acute Bronchitis, likely Viral Discharge Goals Goal(s): Decrease discomfort, Improve function, Diagnostic testing, Therapeutic intervention Activity Recommendations Activity Limitations: resume your previous activity . Instructions / Follow-Up Instructions / Follow-Up Please follow-up with Dr. Alas on June 05 @ 2:50PM * You will be discharged with prednisone * Take 4 tablets (40mg) on 06/01 and 06/02 * Take 3 tablets (30mg) on 06/03 and 06/04 * Take 2 tablets (20mg) on 06/05 and 06/06 * Take 1 tablet (10mg on 06/07 and 06/08 * You are also discharged on doxycycline (antibiotic) - twice a day for five days * A cough medication has also been prescribed for you (benzonatate) * Primary care physician can follow-up on the blood cultures from hospital stay (one bottle was positive, likely contamination) Current Hospital Diet Patient's current hospital diet: AHA Diet (Heart Healthy) Discharge Diet Recommended Diet: AHA Diet (Heart Healthy) Pending Studies Studies pending at discharge: no Medical Emergencies . Who to Call and When: Medical Emergencies: If at any time you feel your situation is an emergency, please call 911 immediately. . Non-Emergent Contact Non-Emergency issues call your: Primary Care Provider . . "Provider Documentation" section prepared by Jenny Chapa. VTE Core Measure Inpt VTE Proph given/why not?: Enoxaparin (Lovenox)SQ
--- NOTE | 2016-05-31 14:08 | Discharge Summary ---
Discharge Summary Date of Service May 31, 2016. Discharge Summary Admission Date: May 30, 2016 at 03:07 Discharge Date: May 31, 2016 Discharge Disposition: Home Principal Diagnosis: Acute Bronchitis Medication Reconciliation New Medications: Prednisone Tab (Prednisone) 10 Mg Tab 10 MG PO DAILY for 8 Days, #20 TAB Benzonatate (Benzonatate) 100 Mg Cap 100 MG PO Q8H PRN for Cough for 5 Days, #15 CAP Doxycycline Hyclate (Doxycycline Hyclate) 100 Mg Cap 100 MG PO BID for 5 Days, #10 CAP Guaifenesin (Robitussin) 100 Mg/5 Ml Idania 100 MG PO Q6H PRN for Cough for 5 Days Continued Medications: Amiodarone Hcl (Cordarone) 200 Mg Tab 200 MG PO QAM, TAB Aspirin (Aspirin Ec) 81 Mg Tab 81 MG PO DAILY Calcium Carbonate-Cholecalcife (Caltrate 600+D) 1 Tab Tab 1 TAB PO DAILY Carvedilol (Coreg) 12.5 Mg Tab 12.5 MG PO BID, TAB Cholecalciferol (Vitamin D3) Unknown Strength Tab Unknown Dose PO DAILY, TAB 3 Refills Coconut Oil (Coconut Oil Organic) 1,000 Mg Cap 1 CAP PO DAILY Furosemide (Furosemide) 20 Mg Tab 20 MG PO DAILY Lisinopril (Lisinopril) 20 Mg Tab 20 MG PO QAM Magnesium Oxide (Magnesium) 400 Mg Tab 400 MG PO QPM Hawi-3 Fatty Acids (Hawi 3) 1 Cap Cap 1000 MG PO QAM Discontinued Medications: Azithromycin (Zithromax Z-Elie) 250 Mg Tab 1 PKT PO UD for 5 Days, #6 TAB STARTED SUN. 05/28/16 Dextromethorphan Polymr Complx (Delsym) 30 Mg/5 Ml Liqcr Unknown Dose PO DIRECTED PRN for Cough Admission Information HPI (per Admitting provider): 86-year-old female followed by Dr. Alas for Family Medicine. History of hypertrophic cardiomyopathy, diastolic CHF, hypertension, ventricular tachycardia, and other problems noted below. Developed a cough about 7 days prior to admission. Cough is productive of yellow sputum. No associated fevers, chills, sweats, chest pain. She was prescribed azithromycin and also took an wjep-zve-dbendeh cough medication. Came to the ED tonight because of worsening cough and worsening dyspnea. . Physical Exam (per Admitting): General Appearance: WD/WN, + mild distress Head: normocephalic, atraumatic Eyes: normal inspection, PERRL, EOMI, sclerae normal ENT: normal ENT inspection, hearing grossly normal, pharynx normal Neck: supple, no adenopathy, thyroid normal, no JVD, trachea midline Respiratory/Chest: no respiratory distress, no accessory muscle use, + rhonchi (scattered), + wheezing (diffuse moderate) Cardiovascular: regular rate, rhythm, no edema, no gallop, no JVD Abdomen/GI: normal bowel sounds, non tender, soft, no organomegaly, no pulsatile mass Extremities/Musculoskelatal: normal inspection, no calf tenderness, no pedal edema Neurologic/Psych: network architect manager II-XII nml as tested (PERRL, EOMI, no facial palsy, no dysarthria), no motor/sensory deficits (motor strength upper and lower extremities grossly intact), alert, normal mood/affect, oriented x 3 Skin: normal color, warm/dry, no rash Lymphatic: no adenopathy Hospital Course This is an 86 year old female with PMH of apical variant hypertrophic cardiomyopathy, hx. of v-tach s/p AICD, HTN, HLD, Diastolic CHF, CKD stage 3 presents with cough and shortness of breath Acute Bronchitis vs. Viral URI 05/31 patient doing well +dry cough one set of blood cultures = coag negative staph likely contamination, afebrile, no significant leukocytosis will d/c home today with prednisone taper and doxycycline outpatient f/u with primary care on June 05 @ 2:50PM 05/30 patient presents with a productive cough CXR with no acute process slightly hypoxic on admission, though saturating well now on room air hemodynamically stable and afebrile had seen urgent care on May 28 - was prescribed a Z-elie agree with switching to doxycycline low dose IV steroids for now clinically feeling much better than admission will transfer to med/surg Chronic Diastolic CHF BNP elevated on admission given one dose of IV Lasix in the ER slight edema in the lower extremities - baseline/chronic CXR - no acute process no need for further diuresis continue LA-I and b-imelda at baseline HTN presented with elevated blood pressures likely due to missed medications continue b-imelda and LA-I at home dose monitor BP - uncontrolled overnight CKD stage 3 creat at 1.4; around baseline monitor and avoid nephrotoxic agents when possible Hx. of Sustained V-tach s/p AICD continue amiodarone at home dose DVT ppx SCDs/ambulation FULL CODE plan to transfer to med/surg today (05/30) - if there is improvement, may discharge home in AM (05/31) Total time spent on discharge = 40 minutes This includes examination of the patient, discharge planning, medication reconciliation, and communication with other providers. Discharge Instructions Please follow-up with Dr. Alas on June 05 @ 2:50PM * You will be discharged with prednisone * Take 4 tablets (40mg) on 06/01 and 06/02 * Take 3 tablets (30mg) on 06/03 and 06/04 * Take 2 tablets (20mg) on 06/05 and 06/06 * Take 1 tablet (10mg on 06/07 and 06/08 * You are also discharged on doxycycline (antibiotic) - twice a day for five days * A cough medication has also been prescribed for you (benzonatate) * Primary care physician can follow-up on the blood cultures from hospital stay (one bottle was positive, likely contamination)
[2016-05-31 14:44] VITALS: BP 164/84; PULSE 62; TEMP 36.6; O2SAT 95
[2016-05-31 15:43] VITALS: BP 155/84; PULSE 64; TEMP 36.6; O2SAT 95
[2016-06-02] MEDS ORDERED: VANCOMYCIN TROUGH SCH (11:30)
== END 2016-05-31 16:45 | disposition home or self-care (01) | DRG 202 ==
LOC: ENRESERVDT → ENRESERVTM → C.EDB 22:00 → C.MSICU 05-30 03:07 → C.MS2W 05-30 10:33
PROVIDERS: ADMIT Hospitalist; ATTEND Family Medicine
DX: J20.9 Acute bronchitis, unspecified (principal); I13.0 Hypertensive heart and chronic kidney disease with heart failure and stage 1 through stage 4 chronic kidney disease, or unspecified chronic kidney disease; I50.32 Chronic diastolic (congestive) heart failure; I47.2 Ventricular tachycardia; I42.2 Other hypertrophic cardiomyopathy; N18.3 Chronic kidney disease, stage 3 (moderate); E78.5 Hyperlipidemia, unspecified; J06.9 Acute upper respiratory infection, unspecified; B97.89 Other viral agents as the cause of diseases classified elsewhere; R19.7 Diarrhea, unspecified; M19.011 Primary osteoarthritis, right shoulder; Z86.711 Personal history of pulmonary embolism; Z86.73 Personal history of transient ischemic attack (TIA), and cerebral infarction without residual deficits; Z95.810 Presence of automatic (implantable) cardiac defibrillator; Z79.82 Long term (current) use of aspirin; Z79.899 Other long term (current) drug therapy

== ENCOUNTER → 2016-09-12 | Outpatient (CLI) | payer OTHER ==
[~2016-09-12] MED LIST changes: -ASPCH81X PO; +ASPI81TA28 PO; +BENZ100C7 PO; -CALC-220 PO; +CALC-354 PO; +CARV12.52 PO; -CRG125 PO; +DXY100 PO; +LSX20 PO; +RBTUDL5 PO
[2016-09-12 15:44] LABS: BASO % 0.3 %; BASO ABS # 0.02 K/uL (0-0.2); COMPLETE YES; EOS % 3.5 %; HEMATOCRIT 40.2 % (37-47); IG% 0.3 %; LYMPH % 6.4 %; MEAN CELL VOLUME 97.1 fL (80-100); MEAN CORPUSCULAR HEMOGLOBIN 32.6 pg (25-34); MEAN CORPUSCULAR HGB CONC 33.6 g/dl (32-36); MEAN PLATELET VOLUME 11.8 fL (7.4-10.4); MONO % 4.8 %; NEUT % 84.7 %; PLATELET COUNT 204 K/uL (130-400); RED BLOOD COUNT 4.14 M/uL (4.2-5.4); WHITE BLOOD COUNT 7.76 K/uL (4.8-10.8)
[2016-09-12 15:52] LABS: SYNOVIAL FLUID APPEARANCE CLOUDY; SYNOVIAL FLUID COLOR PALE YELLOW
[2016-09-12 16:11] LABS: C-REACTIVE PROTEIN 9.95 mg/dl (0-0.29); RHEUMATOID FACTOR < 10.0 U/mL (0-15); URIC ACID 3.6 mg/dl (2.6-7.2)
[2016-09-16 22:15] LABS: HLA-B27** TC 528X NEGATIVE (NEGATIVE)
[2016-09-19 01:45] LABS: 18KDIGG BAND NONREACTIVE (NONREACTIVE); 23KDIGG BAND NONREACTIVE (NONREACTIVE); 23KDIGM BAND REACTIVE (NONREACTIVE); 28KDIGG BAND NONREACTIVE (NONREACTIVE); 30KDIGG BAND NONREACTIVE (NONREACTIVE); 39KDIGG BAND NONREACTIVE (NONREACTIVE); 39KDIGM BAND NONREACTIVE (NONREACTIVE); 41KDIGG BAND NONREACTIVE (NONREACTIVE); 41KDIGM BAND NONREACTIVE (NONREACTIVE); 45KDIGG BAND NONREACTIVE (NONREACTIVE); 58KDIGG BAND REACTIVE (NONREACTIVE); 66KDIGG BAND NONREACTIVE (NONREACTIVE); 93KDIGG BAND NONREACTIVE (NONREACTIVE)
--- NOTE | 2016-09-26 08:45 | CODING QUERY MEDICAL NECESSITY ---
CQSUPPORTING DIAGNOSIS NEEDED A supporting diagnosis is required for the test/procedure performed on this patient in order for us to be reimbursed by the patient's insurance. Please provide a supporting diagnosis for the following test/procedure listed below next to the test name along with your signature. *If there is no additional diagnosis for this patient that would support the following test/procedure please document that below next to the test/procedure. Test(s)/Procedure(s) that require a supporting diagnosis: DOS 09/12/16 BLOOD COUNT HISTOLOGY TESTING Provider Signature: Date: Thank you Mariajose [facility] Once completed, please kindly fax back to [phone] For questions please call [phone]
== END | disposition home or self-care (01) ==
LOC: C.LAB 14:36
PROVIDERS: ATTEND Orthopaedic Surgery Sports Medicine
DX: M17.12 Unilateral primary osteoarthritis, left knee (principal)

== ENCOUNTER 2018-06-30 14:21 | Inpatient (IN) ==
[2018-06-30 15:09] LABS: Basophils # (auto) 0.04 K/uL (0-0.2); Basophils % (auto) 0.5 %; Eosinophils # (auto) 0.29 K/uL (0-0.5); Eosinophils % (auto) 3.4 %; Hematocrit (blood only) 43.2 % (37-47); Hemoglobin 14.9 g/dL (12.0-16.0); Immature Granulocytes # (auto) 0.01 K/uL (0.00-0.02); Immature Granulocytes % (auto) 0.1 %; Lymphocytes # (auto) 1.89 K/uL (1.2-3.4); Lymphocytes % (auto) 21.9 %; Mean Corpuscular Hgb Conc 34.5 g/dL (32-36); Mean Corpuscular Volume 94.7 fL (80-100); Mean Platelet Volume 10.8 fL (7.4-10.4); Monocytes # (auto) 0.76 K/uL (0.11-0.59); Monocytes % (auto) 8.8 %; Neutrophils # (auto) 5.63 K/uL (1.4-6.5); Neutrophils % (auto) 65.3 %; Platelet Count 171 K/uL (130-400); RDW Coefficient of Variation 15.2 % (11.5-14.5); Red Blood Count 4.56 M/uL (4.2-5.4); White Blood Count 8.62 K/uL (4.8-10.8)
--- NOTE | 2018-06-30 15:15 | XRay Report ---
XR chest 1V portable HISTORY: 88 years-old Female Chest Pain acute atypical chest pain COMPARISON: Chest radiograph 05/30/2016 TECHNIQUE: Portable AP view of the chest FINDINGS: Cardiac mediastinal and hilar silhouettes are unchanged. Stable positioning of the left subclavian pa cer/AICD. Calcification of the thoracic aortic arch. Mild right hemidiaphragmatic elevation. There is no pneumothorax, pleural effusion, lobar airspace consolidation or overt pulmonary edema. Right shou lder reverse total joint arthroplasty. Degenerative changes of the left shoulder and spine. IMPRESSION: No acute process. The above report was generated using voice recognition software. It may contain grammatical, syntax o r spelling errors. Electronically signed by: Wolfgang Flores M.D. 06/30/2018 3:13 PM
[2018-06-30 15:29] LABS: Calcium 9.2 mg/dl (8.5-10.1); Creatinine Clr Calc Pharmacy 29.5 ml/min; Est GFR (African American) 41.1; Est GFR (Non-African American) 35.5; Magnesium 2.2 mg/dl (1.8-2.4); Potassium 4.3 mmol/L (3.5-5.1)
[2018-06-30 15:40] LABS: Albumin Globulin Ratio 0.8 (0.9-2); Bilirubin,Total 0.4 mg/dl (0.2-1); Globulin 3.9 gm/dl (2.5-4.0); Total Protein 6.9 gm/dl (6.4-8.2)
[2018-06-30] MEDS ORDERED: SODIUM CHLORIDE 0.9% 1000ML 500 ML IV ONE (16:08)
--- NOTE | 2018-06-30 16:18 | Emergency Department Note ---
Entered by Stevo Leigh acting as a scribe for History of Present Illness General Chief complaint: Cardiac Assessment Stated complaint: HEART PALPITATIONS,SOB Time Seen by Provider: 06/30/18 14:35 Source: patient Mode of arrival: ambulatory History of Present Illness Provider complaint: Heart Palpitations Onset (ago): hour(s) 3 Location: chest Pain Consistency: + constant Maximum Pain Intensity: 0 Current Pain Intensity: 0 Quality: + other (Heart Palpitations ) Associated symptoms: + shortness of breath; no nausea/vomiting Patient is an 88 year old female who presents herself to the ER with complaint of heart palpitations beginning at 1200 today. She states she feels the palpitations heavily and has been having accompanied symptoms of shortness of breath. She rates her pain consistency as constant at a value of 0 on the pain intensity scale. Patient states she has a pacemaker which was placed in 2012. Patient denies nausea and vomiting. Home Medications Home Medications Medication Instructions Recorded Confirmed Type aspirin [Aspir-81] 81 mg PO DAILY 06/30/18 06/30/18 History carvedilol [Coreg] 25 mg PO BID 06/30/18 06/30/18 History mwvhb-tl-2-lrz-uds-fhyxhrd-ast 0 mg PO DAILY 06/30/18 06/30/18 History [krill oil] lisinopril 10 mg PO DAILY 06/30/18 06/30/18 History magnesium oxide 400 mg PO DAILY 06/30/18 06/30/18 History multivit with min-folic acid 1 tab PO DAILY 06/30/18 06/30/18 History [Adult One Daily Multivitamin] Allergies Allergy/AdvReac Type Severity Reaction Status Date / Time Penicillins Allergy Mild FACIAL Verified 06/30/18 15:14 SWELLING levofloxacin Allergy Unknown ? Verified 06/30/18 15:14 questionable tendon issues Past Med/Surg History Medical History Dyspnea Hypertension Stroke Social History Preferred Language: Slovenian Feels Safe at Home: Yes Smoking Status: Never smoker Review of Systems See HPI for pertinent positives & negatives. and A total of 10 systems reviewed and were otherwise negative Physical Exam Vital Signs Vital Signs - 24 hr 06/30/18 14:23 04/28/19 15:46 Temperature 36.8 C Temperature Source Oral Sepsis Recent Fever Within 48 Hours No Sepsis New/Unexplained Change in Mental Status No Sepsis Action Taken by Nursing No Action Required Pulse Rate 68 Pulse Rate [Right Finger] 71 Pulse Rhythm Regular Pulse Strength Normal Respiratory Rate 20 18 Respiratory Effort / Characteristics Non-Labored Spontaneous Respiratory Depth Normal Respiratory Pattern Regular Blood Pressure 160/93 H Blood Pressure [Left Arm] 147/94 H Blood Pressure Mean 115 Blood Pressure Mean [Left Arm] 111 Blood Pressure Position Sitting Pulse Oximetry 98 97 Oxygen Delivery Method Room Air General: Non-ill appearing 88 year old female in no acute distress. HEENT: Normal cephalic atraumatic. Pupils are equal round and reactive to light. Extraocular movements are intact. Oropharynx is pink with moist mucous membranes. No swelling of the mouth lips or tongue. Neck: Supple with a midline trachea. No meningeal signs or stiffness, no JVD or bruits. No Stridor. Chest: Clear to auscultation bilaterally. No wheezes or rhonchi. No increased w ork of breathing. Heart: irregularly irregular Abdomen: Soft nontender, nondistended without rebound guarding or rigidity. Extremities: No cyanosis clubbing or edema. No calf tenderness or asymmetry Spine/Back. Non tender to palpation. No CVA tenderness Skin: Good turgor without rashes. Neurologic exam: Cranial nerves two through 12 are intact. Motor and sensation are intact and symmetrical throughout. Course 1444: Past medical records reviewed. The patient was evaluated in room B7. A complete history and physical examination was performed. 1616:I spoke with Padmini Harris PA-C regarding the patients case. She will admit the patient under the care of Nancy Arciniega. 1702: The patient has verbalized agreement to the treatment plan. Consultations Consultation #1: Padmini Harris PA-C Time: 16:16 Administered Medications Ioversol (Optiray 320 125ml) 119 ml IV ONCE PRN PRN Reason: Interaction Checking Stop: 07/04/18 16:25 Last Admin: 06/30/18 16:26 Dose: 119 ml Documented by: [id number] Discontinued Medications Aspirin (Aspirin) 324 mg PO NOW STA Stop: 06/30/18 16:59 Last Admin: 06/30/18 17:03 Dose: 324 mg Documented by: [id number] Sodium Chloride (Nss 1000ml) 500 mls @ 999 mls/hr IV .Q31M ONE Stop: 06/30/18 16:38 Last Admin: 06/30/18 16:16 Dose: 999 mls/hr Documented by: [id number] Medical Decision Making Differential Diagnosis Arrhythmia ,acute coronary syndrome, electrolyte or metabolic abnormality Medical Records Attestation: I reviewed the patient's medical records. Home Medications Current Medication List: was personally reviewed by me Laboratory Data Attestation: I reviewed the patient's lab results. Result diagrams: 06/30/18 14:59 06/30/18 14:59 Lab Results 06/30/18 06/30/18 06/30/18 Range/Units 14:59 14:59 15:04 WBC 8.62 (4.8-10.8) K/uL RBC 4.56 (4.2-5.4) M/uL Hgb 14.9 (12.0-16.0) g/dL Hct 43.2 (37-47) % MCV 94.7 (80-100) fL MCH 32.7 (25-34) pg MCHC 34.5 (32-36) g/dL RDW Std Deviation 53.0 H (36.4-46.3) fL RDW Coeff of Joi 15.2 H (11.5-14.5) % Plt Count 171 (130-400) K/uL MPV 10.8 H (7.4-10.4) fL Immature Gran % (Auto) 0.1 % Neut % (Auto) 65.3 % Lymph % (Auto) 21.9 % Emmons % (Auto) 8.8 % Eos % (Auto) 3.4 % Baso % (Auto) 0.5 % Immature Gran # (Auto) 0.01 (0.00-0.02) K/uL Neut # (Auto) 5.63 (1.4-6.5) K/uL Lymph # (Auto) 1.89 (1.2-3.4) K/uL Emmons # (Auto) 0.76 H (0.11-0.59) K/uL Eos # (Auto) 0.29 (0-0.5) K/uL Baso # (Auto) 0.04 (0-0.2) K/uL Sodium 144 (136-145) mmol/L Potassium 4.3 (3.5-5.1) mmol/L Chloride 108 H (98-107) mmol/L Carbon Dioxide 27 (21-32) mmol/L Anion Gap 8.0 (3-11) BUN 28 H (7-18) mg/dl Creatinine 1.35 H (0.6-1.2) mg/dl Est Cr Clr Drug Dosing 29.5 ml/min Est GFR ( Amer) 41.1 Est GFR (Non-Af Amer) 35.5 BUN/Creatinine Ratio 21.0 H (10-20) Glucose 93 (70-99) mg/dl Calcium 9.2 (8.5-10.1) mg/dl Magnesium 2.2 (1.8-2.4) mg/dl Total Bilirubin 0.4 (0.2-1) mg/dl AST 23 (15-37) U/L ALT 21 (12-78) U/L Alkaline Phosphatase 60 (45-117) U/L POC Troponin I < 0.03 (0-0.045) ng/ml Total Protein 6.9 (6.4-8.2) gm/dl Albumin 3.0 L (3.4-5.0) gm/dl Globulin 3.9 (2.5-4.0) gm/dl Albumin/Globulin Ratio 0.8 L (0.9-2) Lipase 244 (73-393) U/L TSH 1.730 (0.300-4.500) uIu/ml Imaging Data Attestation: I personally reviewed and interpreted this imaging study as follows: Radiologist's Impression: Radiology results as stated below per my review and the radiologist's interpretation: XR chest 1V portable HISTORY: 88 years-old Female Chest Pain acute atypical chest pain COMPARISON: Chest radiograph 05/30/2016 TECHNIQUE: Portable AP view of the chest FINDINGS: Cardiac mediastinal and hilar silhouettes are unchanged. Stable positioning of the left subclavian pacer/AICD. Calcification of the thoracic aortic arch. Mild right hemidiaphragmatic elevation. There is no pneumothorax, pleural effusion, lobar airspace consolidation or overt pulmonary edema. Right shoulder reverse total joint arthroplasty. Degenerative changes of the left shoulder and spine. IMPRESSION: No acute process. The above report was generated using voice recognition software. It may contain grammatical, syntax or spelling errors. Electronically signed by: Wolfgang Flores M.D. 06/30/2018 3:13 PM Dictated: 06/30/18 1512 Transcribed: 06/30/[address] angio chest PE protocol CT DOSE: 371.10 mGy.cm HISTORY: 88 years-old Female with PE. Acute shortness of breath with cardiac palpitations TECHNIQUE: Multiple CTA images of the chest were obtained after the intravenous administration of 119 ml Optiray 320. Coronal and sagittal MIPS were obtained from the axial data set and were submitted for review. All measurements were obtained according to NASCET criteria. A dose lowering technique was utilized adhering to the principles of ALARA. COMPARISON: Chest radiograph of same day, CTA chest 11/18/2012 FINDINGS: CTA: Mild multichamber cardiac enlargement. Dual lead left subclavian pacer is noted with leads overlying the right atrium and right ventricle. There is no pericardial effusion. Coronary arterial calcifications are noted. There is no thoracic aortic aneurysm or dissection. Moderate mixed plaque formation of the thoracic aorta with patency of the imaged great vessels. Medial course of the bilateral common carotid arteries. Tortuosity of the descending thoracic aorta. The pulmonary arterial tree is opacified to level of the subsegmental branches and demonstrates no focal filling defects to suggest pulmonary thromboembolic disease. CT CHEST: No focal thyroid nodule identified. No adenopathy by CT size criteria. Mildly prominent subcarinal lymph nodes are present. No pneumothorax or pleural effusion. Mild subsegmental bibasilar atelectasis. There is a subpleural irregular 8 x 6 mm solid nodule of the left upper lobe, image 359 series 4 which is new from comparison. There is an adjacent linear branching tubular low- density lesion noted inferior to this about the left upper lobe on image 333 series 4 suggestive of mucous plugging. A cluster of adjacent solid nodules are noted measuring up to approximately 4 mm. There are a few bilateral scattered calcified granulomata. Subsegmental tree-in-bud nodules of the basal left lower lobe. Multiple scattered solid pulmonary nodules of the right lung are seen measuring up to 3 mm. Small right Bochdalek hernia. No overt pulmonary edema or lobar airspace consolidation. 5 mm pleural-based nodule is noted about the super segment right lower lobe, image 21 series 4. The central airways are patent. There is mild to moderate wall thickening about the mid to distal esophagus with mild periesophageal inflammation. Soft tissues are unremarkable. Degenerative changes noted throughout the spine and left shoulder. Right shoulder total joint arthroplasty. Mild sigmoidal scoliosis of the thoracic spine. Remote T11 compression deformity. IMPRESSION: 1. No acute aortic pathology or evidence of pulmonary thromboembolic disease. 2. Multiple bilateral scattered solid pulmonary nodules are noted which includes a cluster of nodules about the left upper lobe measuring up to 8 x 6 mm with an adjacent area of bronchial mucous plugging. 3 month follow-up CT of the chest recommended to further evaluate. 3. Prior granulomatous disease. 4. No pleural effusion or lobar airspace consolidation typical for pneumonia. 5. Wall thickening noted about the mid and distal esophagus. Correlate clinically to exclude esophagitis. 6. Chronic T11 compression deformity. Please refer to below summary of Fleischner criteria recommendations for follow- up of incidental CT nodules (Dominick Nieves, Guidelines for management of small pulmonary nodules detected on CT scans: A statement from the Fleischner Society, Radiology 237: [phone].) SOLID NODULES Multiple nodules size: 6-8 mm * Low risk patients: follow-up at 3-6 months, then consider further follow-up at 18-24 months * high risk patients: follow-up at 3-6 months, then at 18-24 months if no change Multiple nodules size: >8 mm * Low risk patients: follow-up at 3-6 months, then consider further follow-up at 18-24 months * high risk patients: follow-up at 3-6 months, then at 18-24 months if no change Note: newly detected indeterminate nodule in persons 35 years of age or older. * Low risk patients: minimal or absent history of smoking and/or other known risk factors * high risk patients: history of smoking or of other known risk factors (e.g. first degree relative with lung cancer, or exposure to asbestos, radon, uranium) * if a nodule up to 8 mm is partly solid or is ground glass further follow-up is required after 24 months to exclude possible slow growing adenocarcinoma (JAXON) The above report was generated using voice recognition software. It may contain grammatical, syntax or spelling errors. Electronically signed by: Wolfgang Flores M.D. 06/30/2018 4:45 PM Dictated: 06/30/18 163 Transcribed: 06/30/18 163 ECG Data Attestation: I personally reviewed and interpreted this ECG as follows: Indication: other (Heart Palpitations) Rate (beats per minute): 76 Rhythm: normal sinus (intermittent paced rhythms) Findings: + other (T wave inversions laterally ) and + PAC Additional Comments: Second EKG from the day (06-30-18) Atrial paced rhythms Rate of 60 Anterior lateral t wave inversion Mildly prolonged QT Compared to May 31 2016 T wave inversions are more pronounced Blood Pressure Blood Pressure Findings: Elevated blood pressure Blood Pressure Disposition: further management by hospitalist [facility] Narrative This patient comes in as described above. she has had palpitations and some shortness of breath for the last couple hours, she has a history of defibrillator and pacemaker. The defibrillator has not fired. She has no chest pain with the exception of very brief pain lasting a second or 2 when she gets a palpitation. She said that her potassium magnesium were high last week. She has no lower extremity edema. no fever chills .no fall or trauma. IV access established .she was hydrated with a IV 500 cc bolus. Her initial EKG shows intermittent paced rhythm with normal sinus rhythm with frequent ectopy. On her second EKG, she has a paced rhythm that was regular there is diffuse T wave inversions compared to #1. She says she feels a lot better but has had some shortness of breath still and with the diffuse T waves. I was concerned about PE or cardiac disease. Her creatinine is 1.3. I explained the risk and benefits we did order a CT of her chest. Prior to that she did have a chest x-ray that was negative. she has no significant electrolyte or metabolic abnormalities otherwise her troponin initially is negative. The CAT scan was obtained and shows no PE. She has pulmonary nodules but no other acute abnormalities which would explain her symptoms. She was given aspirin 324 mg chewable I do think she needs to be admitted/observed for further cardiac work-up as she has new diffuse T wave inversions and palpitations. I have consulted the [facility] hospitalist group to see her in the ER for these measures. Impression & Plan Chest pain, SOB (shortness of breath), History of ventricular tachycardia, Palpitations, Multiple pulmonary nodules The scribe's documentation has been prepared under my direction and personally reviewed by me in its entirety. I confirm that the note above accurately reflects all work, treatment, procedures, and medical decision making performed by me.
[2018-06-30] MEDS ORDERED: OPTIRAY 320 125ml IV PRN (16:26)
--- NOTE | 2018-06-30 16:47 | CT Scan Report ---
CT angio chest PE protocol CT DOSE: 371.10 mGy.cm HISTORY: 88 years-old Female with PE. Acute shortness of breath with cardiac palpitations TECHNIQUE: Multiple CTA images of the chest were obtained after the intravenous administration of 119 ml Optiray 320. Coronal and sagittal MIPS were obtained from the axial data set and were submitted for review. All measurements were obtained according to NASCET criteria. A dose lowering technique w as utilized adhering to the principles of ALARA. COMPARISON: Chest radiograph of same day, CTA chest 11/18/2012 FINDINGS: CTA: Mild multichamber cardiac enlargement. Dual lead left subclavian pacer is noted with leads overlying the right atrium and right ventricle. There is no pericardial effusion. Coronary arterial calcificati ons are noted. There is no thoracic aortic aneurysm or dissection. Moderate mixed plaque formation of the thoracic aorta with patency of the imaged great vessels. Medial course of the bilateral common c arotid arteries. Tortuosity of the descending thoracic aorta. The pulmonary arterial tree is opacifie d to level of the subsegmental branches and demonstrates no focal filling defects to suggest pulmonar y thromboembolic disease. CT CHEST: No focal thyroid nodule identified. No adenopathy by CT size criteria. Mildly prominent subcarinal ly mph nodes are present. No pneumothorax or pleural effusion. Mild subsegmental bibasilar atelectasis. There is a subpleural irregular 8 x 6 mm solid nodule of the left upper lobe, image 359 series 4 whic h is new from comparison. There is an adjacent linear branching tubular low-density lesion noted infe rior to this about the left upper lobe on image 333 series 4 suggestive of mucous plugging. A cluster of adjacent solid nodules are noted measuring up to approximately 4 mm. There are a few bilateral sc attered calcified granulomata. Subsegmental tree-in-bud nodules of the basal left lower lobe. Multipl e scattered solid pulmonary nodules of the right lung are seen measuring up to 3 mm. Small right Colleen dalek hernia. No overt pulmonary edema or lobar airspace consolidation. 5 mm pleural-based nodule is noted about the super segment right lower lobe, image 21 series 4. The central airways are patent. There is mild to moderate wall thickening about the mid to distal esophagus with mild periesophageal inflammation. Soft tissues are unremarkable. Degenerative changes noted throughout the spine and left shoulder. Right shoulder total joint arthroplasty. Mild sigmoidal scoliosis of the thoracic spine. R [facility] T11 compression deformity. IMPRESSION: 1. No acute aortic pathology or evidence of pulmonary thromboembolic disease. 2. Multiple bilateral scattered solid pulmonary nodules are noted which includes a cluster of nodules about the left upper lobe measuring up to 8 x 6 mm with an adjacent area of bronchial mucous pluggin g. 3 month follow-up CT of the chest recommended to further evaluate. 3. Prior granulomatous disease. 4. No pleural effusion or lobar airspace consolidation typical for pneumonia. 5. Wall thickening noted about the mid and distal esophagus. Correlate clinically to exclude esophagi tis. 6. Chronic T11 compression deformity. Please refer to below summary of Fleischner criteria recommendations for follow-up of incidental CT n odules (Dominick Nieves, Guidelines for management of small pulmonary nodules detected on CT scans: A sta tement from the Fleischner Society, Radiology 237: [phone].) SOLID NODULES Multiple nodules size: 6-8 mm * Low risk patients: follow-up at 3-6 months, then consider further follow-up at 18-24 months * high risk patients: follow-up at 3-6 months, then at 18-24 months if no change Multiple nodules size: >8 mm * Low risk patients: follow-up at 3-6 months, then consider further follow-up at 18-24 months * high risk patients: follow-up at 3-6 months, then at 18-24 months if no change Note: newly detected indeterminate nodule in persons 35 years of age or older. * Low risk patients: minimal or absent history of smoking and/or other known risk factors * high risk patients: history of smoking or of other known risk factors (e.g. first degree relative with lung cancer, or exposure to asbestos, radon, uranium) * if a nodule up to 8 mm is partly solid or is ground glass further follow-up is required after 24 m onths to exclude possible slow growing adenocarcinoma (JAXON) The above report was generated using voice recognition software. It may contain grammatical, syntax o r spelling errors. Electronically signed by: Wolfgang Flores M.D. 06/30/2018 4:45 PM
[2018-06-30] MEDS ORDERED: ASPIRIN CHEW 324 MG PO STA (16:58)
--- NOTE | 2018-06-30 17:46 | History & Physical Report ---
Date of Service June 30, 2018 Assessment & Plan (1) Palpitations: Pt with hx ventricular tachycardia s/p ICD. Pt presented with c/o intermittent palpitations described as skipped beats today with associated sensation of needing to catch her breath. Denies any further episodes during ER course. Denies CP, dizziness. Denies current SOB. In ER afebrile, vitals stable. No leukocytosis, no significant electrolyte abnormality. Magnesium: 2.2. TSH: 1.7.POC troponin negative. EKG: paced rhythm, diffuse t wave inversion, seen on previous EKG. CTA CHEST: No acute aortic pathology or evidence of pulmonary thromboembolic disease. -tele to monitor -trend troponin -resting echo -pacer/ICD interrogation -cbc, bmp in am (2) CAD (coronary artery disease): Hx minimal nonobstructive CAD per cardiac cath in 2012 No CP -trend troponin -continue aspirin, carvedilol (3) Multiple pulmonary nodules: CT CHEST: Multiple bilateral scattered solid pulmonary nodules are noted which includes a cluster of nodules about the left upper lobe measuring up to 8 x 6 mm with an adjacent area of bronchial mucous plugging. 3 month follow-up CT of the chest recommended to further evaluate. -Recommend repeat CT chest in 3 months (4) History of ventricular tachycardia: S/P ICD -ICD/pacer interrogation (5) Diastolic CHF, chronic: Hx echo 2013: EF: 60-65%, normal wall motion, apical hypertrophy, mild TR -Euvolemic currently (6) CKD (chronic kidney disease), stage III: Cr: 1.35. Baseline Cr: 1.3 -monitor renal functions -avoid nephrotoxic agents when able (7) History of stroke: -continue aspirin (8) History of pulmonary embolism: Not on anticoagulation (9) Hypertension: Stable -continue carvedilol, lisinopril (10) Dyslipidemia: -continue fish oil DVT Prophylaxis -Heparin SQ Full Code as per discussion with pt, however if poor prognosis reports does not want prolonged life support Follows with Dr Alas for routine care Pt was seen with Dr Dominique. See addendum History of Present Illness trudy Chief Complaint: Palpitations Primary Care Provider: Cherry Alas MD Pt is 88 y/o F with PMH apical cardiomyopathy, diastolic heart failure, ventric ular tachycardia s/p ICD, minimal nonobstructive CAD per cath 2012, labile HTN, CKD III, h/o intermittent palpitations, h/o CVA, presented to ER with complaint of palpitations. Patient states this afternoon was sitting when she started with palpitations which lasted for approximately 20-25 minutes. States when she had the palpitations described as skipped beats and she felt like had to take a deep breath, denies any associated dizziness or chest pain. Palpitations resolved and then returned again and palpitations have been intermittent until ER arrival. Denies any current SOB or CP. Patient denies any ICD firing. 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 Patient denies missing her medications. Denies fever/chills, diaphoresis, N/V/D/C, MOREJON, dizziness, syncope, vision changes, neck pain, CP, orthopnea, cough, sore throat, choking, otalgia, rhinorrhea, abdominal pain, paresthesias, weakness, extremity weakness, extremity edema, rashes, urinary symptoms. Allergies Allergy/AdvReac Type Severity Reaction Status Date / Time Penicillins Allergy Mild FACIAL Verified 06/30/18 15:14 SWELLING levofloxacin Allergy Unknown ? Verified 06/30/18 15:14 questionable tendon issues Home Medications Home Medications Medication Instructions Recorded Confirmed Type aspirin [Aspir-81] 81 mg PO DAILY 06/30/18 06/30/18 History carvedilol [Coreg] 25 mg PO BID 06/30/18 06/30/18 History cholecalciferol (vitamin D3) 1,000 unit PO DAILY 06/30/18 06/30/18 History [id number]-ast 1 tab PO DAILY 06/30/18 06/30/18 History [krill oil] lisinopril 10 mg PO DAILY 06/30/18 06/30/18 History magnesium oxide 400 mg PO DAILY 06/30/18 06/30/18 History multivit with min-folic acid 1 tab PO DAILY 06/30/18 06/30/18 History [Adult One Daily Multivitamin] Past Med/Surg History Medical History CKD (chronic kidney disease), stage III (Chronic) CAD (coronary artery disease) (Chronic) hx minimal nonobstructive CAD on cardiac cath 2012 History of stroke (Chronic) History of pulmonary embolism (Chronic) Hypertension (Chronic) CKD (chronic kidney disease), stage III (Chronic) Dyslipidemia (Chronic) History of ventricular tachycardia (Chronic) "AICD in situ " Diastolic CHF, chronic (Chronic) Apical variant hypertrophic cardiomyopathy (Chronic) Rotator cuff tear (Chronic) DJD of right shoulder (Chronic) Palpitations (Chronic) Dyspnea Hypertension Stroke Surgical History Status post cholecystectomy (Chronic) Status post hysterectomy (Chronic) Status post implantation of automatic cardioverter/defibrillator (AICD) (Chronic) Status post cardiac catheterization (Chronic) "minimal nonobstructive CAD" History of right shoulder replacement (Chronic) Family History Other COPD (chronic obstructive pulmonary disease) Stroke Social History Preferred Language: Albanian Communication Ability: Effective 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 Beliefs That Will Affect Care: None Current Living Situation: Alone Other Information That Helps Us Care for You: No Feels Safe at Home: Yes Safety Concerns: Feels Safe At This Time Smoking Status: Never smoker Do You Dip or Chew Tobacco: No Second Hand Exposure: No Tobacco Cessation Education Requested by Patient: No Hx Alcohol Use: No Hx Substance Use: No Review of Systems Review of Systems: All systems reviewed & are unremarkable except as noted in HPI & below Physical Exam Physical Exam: General: no distress, WDWN Head: normocephalic, atraumatic Eyes: PERRL, EOM's intact, conjunctiva non-injected, anicteric ENT: normal inspection external ears, nose, mucous membranes moist Neck: supple, trachea midline, non-tender Lungs: clear, no respiratory distress, no wheezing/rhonchi/rales CV: RRR, no murmur, no JVD, no pretibial edema Abd: normal BS, soft, non-tender Ext: no cyanosis, no calf tenderness Neuro: A&O x 3, no focal deficits noted, normal affect Skin: warm, dry Results & Data Vital Signs (Past 12 Hours) Vital Signs Temp Pulse Pulse Resp BP BP Pulse Ox 06/30/18 15:46 71 18 147/94 H 97 06/30/18 14:23 36.8 C 68 20 160/93 H 98 Laboratory Results Short CBC 06/30/18 Range/Units 14:59 WBC 8.62 (4.8-10.8) K/uL Hgb 14.9 (12.0-16.0) g/dL Hct 43.2 (37-47) % Plt Count 171 (130-400) K/uL BMP 06/30/18 14:59 Sodium 144 Potassium 4.3 Chloride 108 H Carbon Dioxide 27 BUN 28 H Creatinine 1.35 H Glucose 93 Calcium 9.2 Liver Function 06/30/18 Range/Units 14:59 Total Bilirubin 0.4 (0.2-1) mg/dl AST 23 (15-37) U/L ALT 21 (12-78) U/L Alkaline Phosphatase 60 (45-117) U/L Albumin 3.0 L (3.4-5.0) gm/dl Diagnostic Findings CXR: IMPRESSION: No acute process. CTA CHEST: IMPRESSION: 1. No acute aortic pathology or evidence of pulmonary thromboembolic disease. 2. Multiple bilateral scattered solid pulmonary nodules are noted which includes a cluster of nodules about the left upper lobe measuring up to 8 x 6 mm with an adjacent area of bronchial mucous plugging. 3 month follow-up CT of the chest recommended to further evaluate. 3. Prior granulomatous disease. 4. No pleural effusion or lobar airspace consolidation typical for pneumonia. 5. Wall thickening noted about the mid and distal esophagus. Correlate clinically to exclude esophagitis. 6. Chronic T11 compression deformity. ECG Rate (beats per minute): 60 Findings: + T-wave inversion (diffuse) and + paced rhythm Additional Comments: EKG at 3: 53pm compared to prior ekg and hx diffuse t wave inversions Supervising Physician Co-Signing Physician Notes See addendum on 06/30/18
--- NOTE | 2018-06-30 18:26 | Communication Note ---
Date of Service: June 30, 2018 Patient was seen and evaluated with DON Seaman. Patient comes to ED with complaint of episodes of "skipped beats associated with difficulty catching her breath during these episodes Denies any chest pain, shortness of breath, cough, fever, chills, leg swelling, weight gain, orthopnea. No recent illnesses GENERAL- AAOX3, No acute distress HEAD- Atraumatic, Normocephalic EYES- No pallor, icterus, redness, discharge. Pupils are equal, round, reactive to light and accomodation. EARS- Normal pinna, no discharge, tenderness noted NOSE- No nasal discharge noted NECK- Supple, no JVD LUNGS- Air entry bilaterally equal. No rales, rhonchi, crackles, wheezes heard. HEART- Regular rate and rhythm. No murmurs ABDOMEN- Soft, non tender, non distended, Bowel sounds heard. EXTREMITIES- Good peripheral pulses, no edema NEUROMUSCULAR- AAOX3, Grossly no focal deficits ASSESSMENT AND PLAN: EPISODES OF "SKIPPED BEATS" Associated with some SOB, not associated with exertion. No chest pain or signs of fluid overload or decreased activity tolerance. No recent illness or medication or dosage changes Pacemaker in situ - 2012. 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 Prior granulomatous disease, no ple ural effusion or consolidation HX OF CHF, DIASTOLIC Euvolemic No signs of exacerbation -On lasix PRN HTN Stable -Continue with lisinopril, Coreg 25 mg BID CKD III Baseline: 1.3 Near baseline No acute issues HX OF CHRONIC T11 COMPRESSION DEFORMITY DVT PROPHYLAXIS Heparin SQ DISPOSITION Medical mx in progress Agree with assessment and plan of DON Rangel -
[2018-06-30] MEDS ORDERED: ACETAMINOPHEN 325 MG TAB PO PRN (18:30)
[2018-06-30] MEDS ORDERED: Nursing to Pharmacy Communication ONE (20:23)
[2018-06-30] MEDS ORDERED: CARVEDILOL 25 MG TAB PO SCH (21:00)
[2018-06-30 21:24] LABS: INR 1.1 (0.9-1.1)
[2018-06-30] MEDS: HEPARIN SOD 5,000 UNIT/0.5 ML VIAL SQ SCH (22:35)
[2018-06-30] MEDS: CARVEDILOL 25 MG TAB PO SCH (22:36)
[2018-07-01 03:16] LABS: Hematocrit (blood only) 38.1 % (37-47); Mean Corpuscular Hgb Conc 34.1 g/dL (32-36); Mean Corpuscular Volume 94.3 fL (80-100); Mean Platelet Volume 11.1 fL (7.4-10.4); Platelet Count 161 K/uL (130-400); RDW Coefficient of Variation 15.1 % (11.5-14.5); RDW Standard Deviation 51.9 fL (36.4-46.3); Red Blood Count 4.04 M/uL (4.2-5.4)
[2018-07-01 03:32] LABS: BUN Creatinine Ratio 21.2 (10-20); Calcium 8.6 mg/dl (8.5-10.1); Creatinine Clr Calc Pharmacy 28.3 ml/min; Est GFR (Non-African American) 33.6; Potassium 3.9 mmol/L (3.5-5.1)
[2018-07-01 03:37] LABS: Troponin I 0.025 ng/ml (0-0.045)
[2018-07-01] MEDS: HEPARIN SOD 5,000 UNIT/0.5 ML VIAL SQ SCH (05:38)
[2018-07-01] MEDS: LISINOPRIL 10 MG TAB PO SCH (08:25)
[2018-07-01] MEDS: ASPIRIN 81 MG ECTAB PO SCH (08:26)
[2018-07-01] MEDS: CEROVITE ADV FORMULA TAB PO SCH (08:26)
[2018-07-01] MEDS: CHOLECALCIFEROL 1,000 UNITS TAB PO SCH (08:26)
[2018-07-01] MEDS: MAGNESIUM OXIDE 400 MG TAB PO SCH (08:26)
[2018-07-01] MEDS ORDERED: KRILL OM DHA EPA PHOSPHO AST PO SCH (09:00)
[2018-07-01] MEDS: CARVEDILOL 25 MG TAB PO SCH ×2 (10:41→22:23)
--- NOTE | 2018-07-01 11:08 | Hospitalist Progress Note ---
Date of Service July 01, 2018 Assessment & Plan (1) Palpitations: Pt with hx ventricular tachycardia s/p ICD. Pt presented with c/o intermittent palpitations described as skipped beats with associated sensation of needing to catch her breath. Denies any further episodes during ER course. De nies CP, dizziness. Denies current SOB. In ER afebrile, vitals stable. No leukocytosis, no significant electrolyte abnormality. -Device interrogation today- Episodes of Atrial flutter lasting for <1 minute per verbal report by tech. No events noted on monitor -Currently- paced rhythm -On coreg 25 mg PO BID as at home -Work up - Magnesium: 2.2. TSH: 1.7. troponin negative. EKG: QTC 482; paced r hythm, diffuse t wave inversion, seen on previous EKG. CTA CHEST: No acute aortic pathology or evidence of pulmonary thromboembolic disease. -Consulted cardiology for new onset Atrial flutter -CHADVASC Score -4 . Needs anticoagulation -Echo- pending, follow up (2) CAD (coronary artery disease): Hx minimal nonobstructive CAD per cardiac cath in 2012 No CP -Trop x 2 negative -continue aspirin, carvedilol (3) Multiple pulmonary nodules: CT CHEST: Multiple bilateral scattered solid pulmonary nodules are noted which includes a cluster of nodules about the left upper lobe measuring up to 8 x 6 mm with an adjacent area of bronchial mucous plugging. 3 month follow-up CT of the chest recommended to further evaluate. -Recommend repeat CT chest in 3 months (4) History of ventricular tachycardia: S/P ICD -ICD/pacer interrogation done today as above (5) Diastolic CHF, chronic: Hx echo 2013: EF: 60-65%, normal wall motion, apical hypertrophy, mild TR -Euvolemic -On lasix prn (6) CKD (chronic kidney disease), stage III: Cr: 1.35. Baseline Cr: 1.3, today slightly up -monitor renal functions -avoid nephrotoxic agents when able (7) History of stroke: -continue aspirin (8) History of pulmonary embolism: Not on anticoagulation (9) Hypertension: Stable -continue carvedilol, lisinopril (10) Dyslipidemia: -continue fish oil DVT Prophylaxis -Heparin SQ Full Code as per discussion with pt, however if poor prognosis reports does not want prolonged life support Follows with Dr Alas for routine care DISPOSITION Medical mx in progress Observation status- awaiting cardiology inputs Subjective Patient did have few episodes overnight and today morning- palpitations and skipped beats. Does feel a bit short of breath during these episodes. Denies any chest pain, fever, chills, nausea, vomiting, leg swelling Tele monitor- Paced rhythm in 70-80s, No event Pacemaker interoggation done. Physical Exam Physical Exam: GENERAL- AAOX3, No acute distress NECK- Supple, no JVD LUNGS- Air entry bilaterally equal. No rales, rhonchi, crackles, wheezes heard. HEART- Regular rate and rhythm. No murmurs EXTREMITIES- Good peripheral pulses, no edema Results & Data Vital Signs (Past 12 Hours) Vital Signs Temp Pulse Resp BP Pulse Ox 07/01/18 07:08 36.6 C 84 16 123/73 97 07/01/18 04:16 36.6 C 61 18 108/67 93
--- NOTE | 2018-07-01 12:50 | Cardiology Consultation ---
Date of Consultation July 01, 2018 Assessment & Plan (1) Apical variant hypertrophic cardiomyopathy: (2) CKD (chronic kidney disease), stage III: (3) Hypertension: (4) History of ventricular tachycardia: (5) Atrial flutter, paroxysmal: The patient was on amiodarone for ventricular tachycardia and developed a neuropathy. She will be started on sotalol 80 mg twice daily. I also believe that she should be anticoagulated to prevent embolic events and I have started her on Eliquis 5 mg twice daily. The patient Robert Vasc score is 6 indicating high risk. Has bled score is 2 which is an intermediate risk. History of Present Illness Attending Physician: Esther Dominique History of Present Illness This is a pleasant 88-year-old female who is followed by Dr. Hernández through our clinic. She has a history of apical hypertrophic cardiomyopathy. She presented with ventricular tachycardia and was started on amiodarone and received an ICD. Unfortunately, she developed a neuropathy from the amiodarone and it was discontinued. She has not been on any significant antiarrhythmics. She was admitted through the emergency department with heart palpitations. In terrogation of her ICD indicates paroxysmal atrial flutter. She received no therapy from her ICD. Currently she is in a paced rhythm. She has no complaints. Past cardiac history: 1. Apical hypertrophic cardiomyopathy. 2. Sustained ventricular tachycardia status post ICD placement -amiodarone discontinued secondary to sensory neuropathy -no recurrent ventricular tachycardia per ICD interrogation 03/2018 3. Minimal nonobstructive coronary artery disease per cardiac catheterization 2012 4. Normal LV systolic function, EF 65-70%, with grade 2 diastolic dysfunction. 5. Labile HTN - controlled Allergies Allergy/AdvReac Type Severity Reaction Status Date / Time Penicillins Allergy Mild FACIAL Verified 06/30/18 15:14 SWELLING levofloxacin Allergy Unknown ? Verified 06/30/18 15:14 questionable tendon issues Home Medications Home Medications Medication Instructions Recorded Confirmed Type aspirin [Aspir-81] 81 mg PO DAILY 06/30/18 06/30/18 History carvedilol [Coreg] 25 mg PO BID 06/30/18 06/30/18 History cholecalciferol (vitamin D3) 1,000 unit PO DAILY 06/30/18 06/30/18 History [id number]-3-[id number]-him-[id number]-ast 1 tab PO DAILY 06/30/18 06/30/18 History [krill oil] lisinopril 10 mg PO DAILY 06/30/18 06/30/18 History magnesium oxide 400 mg PO DAILY 06/30/18 06/30/18 History multivit with min-folic acid 1 tab PO DAILY 06/30/18 06/30/18 History [Adult One Daily Multivitamin] Patient History Medical History CKD (chronic kidney disease), stage III (Chronic) CAD (coronary artery disease) (Chronic) hx minimal nonobstructive CAD on cardiac cath 2012 History of stroke (Chronic) History of pulmonary embolism (Chronic) Hypertension (Chronic) CKD (chronic kidney disease), stage III (Chronic) Dyslipidemia (Chronic) History of ventricular tachycardia (Chronic) "AICD in situ " Diastolic CHF, chronic (Chronic) Apical variant hypertrophic cardiomyopathy (Chronic) Rotator cuff tear (Chronic) DJD of right shoulder (Chronic) Palpitations (Chronic) Dyspnea Hypertension Stroke Surgical History Status post cholecystectomy (Chronic) Status post hysterectomy (Chronic) Status post implantation of automatic cardioverter/defibrillator (AICD) (Chronic) Status post cardiac catheterization (Chronic) "minimal nonobstructive CAD" History of right shoulder replacement (Chronic) Family History Other COPD (chronic obstructive pulmonary disease) Stroke Social History Preferred Language: Divehi 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 All other 10 point review of systems are negative. Physical Exam Physical Exam: General: no acute distress and stated age Head: normocephalic, no masses, lesions, tenderness or abnormalities Eyes: conjunctiva are pink and non-injected, sclera clear Neck: supple, no adenopathy, no bruits, normal jugular venous pulse, no hepatojugular reflux Chest: normal shape and normal respiratory effort Lungs: clear to auscultation and percussion Cardiac Exam: - regular rate & rhythm, no murmurs gallops or rubs - normal S1, normal S2 Pulses: 2(+) throughout Abdomen: abdomen soft, non-tender, no abnormal masses and no hepatosplenomegaly Musculoskeletal: no gait disturbance, no joint inflammation, no deforming arthritis Extremities: no edema and no cyanosis Neuro: grossly normal exam Results & Data Vital Signs (Past 12 Hours) Vital Signs Temp Pulse Resp BP BP Pulse Ox 07/01/18 11:18 36.4 C L 63 18 102/65 96 07/01/18 07:08 36.6 C 84 16 123/73 97 07/01/18 04:16 36.6 C 61 18 108/67 93 Laboratory Results Laboratory Results - last 24 hr 06/30/18 06/30/18 06/30/18 14:59 14:59 15:04 WBC 8.62 RBC 4.56 Hgb 14.9 Hct 43.2 MCV 94.7 MCH 32.7 MCHC 34.5 RDW Std Deviation 53.0 H RDW Coeff of Joi 15.2 H Plt Count 171 MPV 10.8 H Immature Gran % (Auto) 0.1 Neut % (Auto) 65.3 Lymph % (Auto) 21.9 [place] % (Auto) 8.8 Eos % (Auto) 3.4 Baso % (Auto) 0.5 Immature Gran # (Auto) 0.01 Neut # (Auto) 5.63 Lymph # (Auto) 1.89 [place] # (Auto) 0.76 H Eos # (Auto) 0.29 Baso # (Auto) 0.04 PT INR Sodium 144 Potassium 4.3 Chloride 108 H Carbon Dioxide 27 Anion Gap 8.0 BUN 28 H Creatinine 1.35 H Est Cr Clr Drug Dosing 29.5 Est GFR ( Amer) 41.1 Est GFR (Non-Af Amer) 35.5 BUN/Creatinine Ratio 21.0 H Glucose 93 Calcium 9.2 Magnesium 2.2 Total Bilirubin 0.4 AST 23 ALT 21 Alkaline Phosphatase 60 POC Troponin I < 0.03 Troponin I Total Protein 6.9 Albumin 3.0 L Globulin 3.9 Albumin/Globulin Ratio 0.8 L Lipase 244 TSH 1.730 06/30/18 06/30/18 07/01/18 20:50 20:50 02:58 WBC RBC Hgb Hct MCV MCH MCHC RDW Std Deviation RDW Coeff of Joi Plt Count MPV Immature Gran % (Auto) Neut % (Auto) Lymph % (Auto) [place] % (Auto) Eos % (Auto) Baso % (Auto) Immature Gran # (Auto) Neut # (Auto) Lymph # (Auto) [place] # (Auto) Eos # (Auto) Baso # (Auto) PT 11.0 INR 1.1 Sodium 140 Potassium 3.9 Chloride 109 H Carbon Dioxide 27 Anion Gap 4.0 BUN 30 H Creatinine 1.41 H Est Cr Clr Drug Dosing 28.3 Est GFR ( Amer) 39.0 Est GFR (Non-Af Amer) 33.6 BUN/Creatinine Ratio 21.2 H Glucose 80 Calcium 8.6 Magnesium Total Bilirubin AST ALT Alkaline Phosphatase POC Troponin I Troponin I 0.018 0.025 Total Protein Albumin Globulin Albumin/Globulin Ratio Lipase TSH 07/01/18 02:58 WBC 7.30 RBC 4.04 L Hgb 13.0 Hct 38.1 MCV 94.3 MCH 32.2 MCHC 34.1 RDW Std Deviation 51.9 H RDW Coeff of Joi 15.1 H Plt Count 161 MPV 11.1 H Immature Gran % (Auto) Neut % (Auto) Lymph % (Auto) [place] % (Auto) Eos % (Auto) Baso % (Auto) Immature Gran # (Auto) Neut # (Auto) Lymph # (Auto) [place] # (Auto) Eos # (Auto) Baso # (Auto) PT INR Sodium Potassium Chloride Carbon Dioxide Anion Gap BUN Creatinine Est Cr Clr Drug Dosing Est GFR ( Amer) Est GFR (Non-Af Amer) BUN/Creatinine Ratio Glucose Calcium Magnesium Total Bilirubin AST ALT Alkaline Phosphatase POC Troponin I Troponin I Total Protein Albumin Globulin Albumin/Globulin Ratio Lipase TSH Medications Administered Current Inpatient Medications Acetaminophen (Tylenol) 650 mg PO Q4H PRN PRN Reason: Pain or Fever Stop: 07/30/18 18:29 Apixaban (Eliquis) 5 mg PO BID [facility] Stop: 07/31/18 20:59 Aspirin (Ecotrin Ectab) 81 mg PO DAILY [facility] Stop: 07/31/18 08:59 Last Admin: 07/01/18 08:26 Dose: 81 mg Documented by: Carvedilol (Coreg) 25 mg PO BID@1100,2300 [facility] Stop: 07/30/18 22:59 Last Admin: 07/01/18 10:41 Dose: 25 mg Documented by: Lisinopril (Zestril) 10 mg PO DAILY [facility] Stop: 07/31/18 08:59 Last Admin: 07/01/18 08:25 Dose: 10 mg Documented by: Magnesium Oxide (Mag-Ox) 400 mg PO DAILY [facility]LVIN Stop: 07/31/18 08:59 Last Admin: 07/01/18 08:26 Dose: 400 mg Documented by: Multivitamins/Minerals (Multivitamin W/ Minerals Tab) 1 tab PO DAILY [facility]LVIN Stop: 07/31/18 08:59 Last Admin: 07/01/18 08:26 Dose: 1 tab Documented by: Sotalol HCl (Betapace) 80 mg PO BID [facility] Stop: 07/31/18 20:59 Vitamin D (Vitamin D3) 1,000 units PO DAILY [facility] Stop: 07/31/18 08:59 Last Admin: 07/01/18 08:26 Dose: 1,000 units Documented by:
[2018-07-01] MEDS: APIXABAN 5 MG TABLET PO SCH (20:58)
[2018-07-01] MEDS: SOTALOL HCL 80 MG TAB PO SCH (20:59)
--- OUTSIDE RECORDS SUMMARY | 2018-07-01 22:43 | External Medical Summary | Continuity of Care Document ---
:1930 Author Name Ronna Garcia Address Unavailable Unavailable , Care Team Providers Name Role Phone Xi Thurston M.D. Unavailable [email or web address] Brian [email or web address] Unavailable Unavailable Problems Active medical history not documented Allergies and Adverse Reactions Allergy history not documented Medications Medications not documented Procedures Procedures not documented Immunizations Immunizations not documented Plan of Treatment Planned Observations Planned Goals not documented Results No Known Results Results not documented Encounters Appointment; [facility] 25-Nov-2012 10:00 Encounter Diagnosis: Problem not documented
[2018-07-02] MEDS: LISINOPRIL 10 MG TAB PO SCH (09:04)
[2018-07-02] MEDS: ASPIRIN 81 MG ECTAB PO SCH (09:05)
[2018-07-02] MEDS: SOTALOL HCL 80 MG TAB PO SCH ×2 (09:05→20:33)
[2018-07-02] MEDS: APIXABAN 5 MG TABLET PO SCH ×2 (09:06→20:33)
[2018-07-02] MEDS: CEROVITE ADV FORMULA TAB PO SCH (09:06)
[2018-07-02] MEDS: MAGNESIUM OXIDE 400 MG TAB PO SCH (09:06)
[2018-07-02] MEDS: CHOLECALCIFEROL 1,000 UNITS TAB PO SCH (09:07)
[2018-07-02] MEDS: CARVEDILOL 25 MG TAB PO SCH ×2 (12:21→22:44)
--- NOTE | 2018-07-02 13:42 | Hospitalist Progress Note ---
Date of Service July 02, 2018 Assessment & Plan (1) Palpitations: Pt with hx ventricular tachycardia s/p ICD. Pt presented with c/o intermittent palpitations described as skipped beats with associated sensation of needing to catch her breath. Denies any further episodes during ER course. De nies CP, dizziness. Denies current SOB. In ER afebrile, vitals stable. No leukocytosis, no significant electrolyte abnormality. -Device interrogation on 07/01/18- Episodes of Atrial flutter lasting for <1 minute per verbal report by tech. No events noted on monitor -Currently- paced rhythm -On coreg 25 mg PO BID as at home. Was started on sotalol 80 mg PO BID by cardiology on 07/01/18- to be monitored for 72 hours. EKG monitoring. F/up todays EKG -Work up - Magnesium: 2.2. TSH: 1.7. troponin negative. EKG: QTC 482; paced rhythm, diffuse t wave inversion, seen on previous EKG. CTA CHEST: No acute aortic pathology or evidence of pulmonary thromboembolic disease. -Consulted cardiology for new onset Atrial flutter. Appreciate inputs. -CHADVASC Score - 6. Started on Eliquis 5 mg BID on 07/01/ by cardiology (Copay $47 acceptable) -Echo- EF 60-65%, Apical hypertrophy, Left atrium, right atrial- Moderately dilated, Gd II diastolic dysfunction (2) CAD (coronary artery disease): Hx minimal nonobstructive CAD per cardiac cath in 2012 No CP -Trop x 2 negative -continue aspirin, carvedilol (3) Multiple pulmonary nodules: CT CHEST: Multiple bilateral scattered solid pulmonary nodules are noted which includes a cluster of nodules about the left upper lobe measuring up to 8 x 6 mm with an adjacent area of bronchial mucous plugging. 3 month follow-up CT of the chest recommended to further evaluate. -Recommend repeat CT chest in 3 months (4) History of ventricular tachycardia: S/P ICD -ICD/pacer interrogation done on 07/01 as above (5) Diastolic CHF, chronic: Hx echo 2013: EF: 60-65%, normal wall motion, apical hypertrophy, mild TR -Euvolemic -On lasix prn (Barely used it in past) (6) CKD (chronic kidney disease), stage III: Cr: 1.35. Baseline Cr: 1.3, today slightly up -monitor renal functions -avoid nephrotoxic agents when able (7) History of stroke: -continue aspirin (8) History of pulmonary embolism: Not on anticoagulation (9) Hypertension: Stable -continue carvedilol, lisinopril (10) Dyslipidemia: -continue fish oil DVT Prophylaxis -Heparin SQ Full Code as per discussion with pt, however if poor prognosis reports does not want prolonged life support Follows with Dr Alas for routine care DISPOSITION Medical mx in progress- Expected discharge home when stable, likely tomorrow Observation status- will be changed to inpatient as patient has new a flutter started on sotalol and needs to be monitored for 72 hours Daughter was updated on phone yesterday. Subjective Patient is feeling much better. Denies any palpitations, skipped beats since yesterday Denies any chest pain, fever, chills, nausea, vomiting, leg swelling Tele monitor- Paced rhythm in 70-80s, No events Pacemaker interrogation done yesterday Physical Exam Physical Exam: GENERAL- AAOX3, No acute distress NECK- Supple, no JVD LUNGS- Air entry bilaterally equal. No rales, rhonchi, crackles, wheezes heard. HEART- Regular rate and rhythm. No murmurs EXTREMITIES- Good peripheral pulses, no edema Results & Data Vital Signs (Past 12 Hours) Vital Signs Temp Pulse Pulse Resp BP Pulse Ox 07/02/18 12:01 36.7 C 60 18 148/81 H 95 07/02/18 08:00 61 07/02/18 07:09 36.7 C 60 18 169/87 H 95 07/02/18 04:28 36.6 C 60 16 122/74 97
--- NOTE | 2018-07-02 15:42 | Cardiology Progress Note ---
Date of Service July 02, 2018 Assessment & Plan (1) Apical variant hypertrophic cardiomyopathy: (2) CKD (chronic kidney disease), stage III: (3) Hypertension: (4) History of ventricular tachycardia: (5) Atrial flutter, paroxysmal: Continue sotalol load. Subjective Patient is tolerating both her sotalol and Eliquis. No complaints today. She is maintaining a paced rhythm and no significant arrhythmias on the telemetry. Review of Systems Review of Systems: All systems reviewed & are unremarkable except as noted in HPI & below No change Physical Exam Physical Exam: General: no acute distress and stated age Head: normocephalic, no masses, lesions, tenderness or abnormalities Eyes: conjunctiva are pink and non-injected, sclera clear Neck: supple, no adenopathy, no bruits, normal jugular venous pulse, no hepatojugular reflux Chest: normal shape and normal respiratory effort Lungs: clear to auscultation and percussion Cardiac Exam: - regular rate & rhythm, no murmurs gallops or rubs - normal S1, normal S2 Pulses: 2(+) throughout Abdomen: abdomen soft, non-tender, no abnormal masses and no hepatosplenomegaly Musculoskeletal: no gait disturbance, no joint inflammation, no deforming arthritis Extremities: no edema and no cyanosis Neuro: grossly normal exam Results & Data Vital Signs (Past 12 Hours) Vital Signs Temp Pulse Pulse Resp BP Pulse Ox 07/02/18 14:47 36.7 C 62 18 131/81 95 07/02/18 12:01 36.7 C 60 18 148/81 H 95 07/02/18 08:00 61 07/02/18 07:09 36.7 C 60 18 169/87 H 95 07/02/18 04:28 36.6 C 60 16 122/74 97 Medications Administered Current Inpatient Medications Acetaminophen (Tylenol) 650 mg PO Q4H PRN PRN Reason: Pain or Fever Stop: 07/30/18 18:29 Apixaban (Eliquis) 5 mg PO BID [facility] Stop: 07/31/18 20:59 Last Admin: 07/02/18 09:06 Dose: 5 mg Documented by: Aspirin (Ecotrin Ectab) 81 mg PO DAILY [facility] Stop: 07/31/18 08:59 Last Admin: 07/02/18 09:05 Dose: 81 mg Documented by: Carvedilol (Coreg) 25 mg PO BID@1100,2300 [facility] Stop: 07/30/18 22:59 Last Admin: 07/02/18 12:21 Dose: 25 mg Documented by: Lisinopril (Zestril) 10 mg PO DAILY [facility] Stop: 07/31/18 08:59 Last Admin: 07/02/18 09:04 Dose: 10 mg Documented by: Magnesium Oxide (Mag-Ox) 400 mg PO DAILY [facility] Stop: 07/31/18 08:59 Last Admin: 07/02/18 09:06 Dose: 400 mg Documented by: Multivitamins/Minerals (Multivitamin W/ Minerals Tab) 1 tab PO DAILY [facility] Stop: 07/31/18 08:59 Last Admin: 07/02/18 09:06 Dose: 1 tab Documented by: Sotalol HCl (Betapace) 80 mg PO BID [facility] Stop: 07/31/18 20:59 Last Admin: 07/02/18 09:05 Dose: 80 mg Documented by: Vitamin D (Vitamin D3) 1,000 units PO DAILY [facility] Stop: 07/31/18 08:59 Last Admin: 07/02/18 09:07 Dose: 1,000 units Documented by:
[2018-07-03] MEDS: APIXABAN 5 MG TABLET PO SCH ×2 (08:01→20:42)
[2018-07-03] MEDS: LISINOPRIL 10 MG TAB PO SCH (08:01)
[2018-07-03] MEDS: ASPIRIN 81 MG ECTAB PO SCH (08:02)
[2018-07-03] MEDS: SOTALOL HCL 80 MG TAB PO SCH ×2 (08:02→20:41)
[2018-07-03] MEDS: CHOLECALCIFEROL 1,000 UNITS TAB PO SCH (08:02)
[2018-07-03] MEDS: CEROVITE ADV FORMULA TAB PO SCH (08:02)
[2018-07-03] MEDS: MAGNESIUM OXIDE 400 MG TAB PO SCH (08:02)
[2018-07-03 08:10] LABS: Basophils # (auto) 0.03 K/uL (0-0.2); Basophils % (auto) 0.4 %; Eosinophils # (auto) 0.31 K/uL (0-0.5); Eosinophils % (auto) 4.6 %; Hematocrit (blood only) 41.8 % (37-47); Hemoglobin 14.4 g/dL (12.0-16.0); Immature Granulocytes # (auto) 0.01 K/uL (0.00-0.02); Immature Granulocytes % (auto) 0.1 %; Lymphocytes # (auto) 1.59 K/uL (1.2-3.4); Lymphocytes % (auto) 23.8 %; Mean Corpuscular Hgb Conc 34.4 g/dL (32-36); Mean Corpuscular Volume 93.9 fL (80-100); Mean Platelet Volume 11.1 fL (7.4-10.4); Monocytes # (auto) 0.76 K/uL (0.11-0.59); Monocytes % (auto) 11.4 %; Neutrophils # (auto) 3.99 K/uL (1.4-6.5); Neutrophils % (auto) 59.7 %; Platelet Count 163 K/uL (130-400); RDW Coefficient of Variation 15.3 % (11.5-14.5); RDW Standard Deviation 52.8 fL (36.4-46.3); Red Blood Count 4.45 M/uL (4.2-5.4); White Blood Count 6.69 K/uL (4.8-10.8)
[2018-07-03 08:37] LABS: BUN Creatinine Ratio 20.6 (10-20); Calcium 9.5 mg/dl (8.5-10.1); Creatinine Clr Calc Pharmacy 31.4 ml/min; Est GFR (African American) 44.3; Est GFR (Non-African American) 38.2; Potassium 4.1 mmol/L (3.5-5.1)
--- NOTE | 2018-07-03 11:31 | Hospitalist Progress Note ---
Date of Service July 03, 2018 Assessment & Plan (1) Palpitations: Atrial flutter, paroxysmal (symptoms as intermittent palpitations described as skipped beats); Presence of Pacemaker -Pt with hx ventricular tachycardia s/p ICD. Pt presented with c/o intermittent palpitations described as skipped beats with associated sensation of needing to catch her breath. Denies any further episodes during ER course. Denies CP, dizziness. Denies current SOB. In ER afebrile, vitals stable. No leukocytosis, no significant electrolyte abnormality. -normal TSH and no pulmonary embolism on admission CTA -Device interrogation on 07/01/18- Episodes of Atrial flutter lasting for <1 minute per verbal report by tech. No events noted on monitor -Echo- EF 60-65%, Apical hypertrophy, Left atrium, right atrial- Moderately dilated, Grade II diastolic dysfunction -patient was continued on home dose carvedilol 25 mg BID and started by cardiology service on sotalol 80 mg PO BID by cardiology on 07/01/18; QTC mildly prolonged as 507 on 07/03/18. Discussed with cardiology service to reduce sotalolol as 40 mg BID starting on 07/03/18 (Patient already got the 07/03/18 AM dose of 80 mg), continue to monitor as inpatient on telemetry -CHADVASC Score - 6. Patient was started on Eliquis 5 mg BID on 07/01/ by cardiology (Copay $47 acceptable), continue Eliquis (2) CAD (coronary artery disease): Hx minimal nonobstructive CAD per cardiac cath in 2012 No CP -Trop x 2 negative -continue aspirin, carvedilol (3) Multiple pulmonary nodules: CT CHEST: Multiple bilateral scattered solid pulmonary nodules are noted which includes a cluster of nodules about the left upper lobe measuring up to 8 x 6 mm with an adjacent area of bronchial mucous plugging. 3 month follow-up CT of the chest recommended to further evaluate. -Recommend repeat CT chest in 3 months (4) History of ventricular tachycardia: S/P ICD -ICD/pacer interrogation done on 07/01 as above (5) Diastolic CHF, chronic: Hx echo 2013: EF: 60-65%, normal wall motion, apical hypertrophy, mild TR -Euvolemic -On lasix prn (Barely used it in past) (6) CKD (chronic kidney disease), stage III: Baseline Cr: 1.3 -monitor renal functions (7) History of stroke: -continue aspirin (8) History of pulmonary embolism: Not on anticoagulation no pulmonary embolism on this admission CTA (9) Hypertension: Stable -continue carvedilol, lisinopril (10) Dyslipidemia: -continue fish oil DVT Prophylaxis -Heparin SQ Full Code as per discussion with pt, however if poor prognosis reports does not want prolonged life support Follows with Dr Alas for routine care Subjective Patient denies palpitations. No chest pain. No shortness of breath. Patient on telemetry is paced and bradycardia in the 60s. However, QTC mildly more prolonged as 507. Patient is ambulatory. no lightheadedness. no dizziness. no abdomen pain. no leg pains Physical Exam Constitutional: WD/WN, vitals as above Eyes: PERRL, conjunctivae normal, anicteric sclerae ENMT: external ear and nose normal, oropharynx normal Neck: trachea midline, no thyromegaly normal visual inspection Respiratory: normal respiratory effort, lungs clear to auscultation Cardiovascular: Rate/Rhythm: regular rate and + bradycardic Gastrointestinal (Abdomen): normal bowel sounds, soft, nontender, no hepatosplenomegaly Musculoskeletal: Head/Neck/Chest: normocephalic and head atraumatic Neurologic: PERRL, EOMI, accommodation nl, no face palsy, no dysarthria CN's II-XI intact bilaterally Psychiatric: A+Ox3, euthymic affect Results & Data Vital Signs (Past 12 Hours) Vital Signs Temp Pulse Pulse Resp BP BP Pulse Ox 07/03/18 07:27 36.7 C 60 20 137/84 97 07/03/18 07:00 60 07/03/18 03:00 36.6 C 55 L 20 137/80 95 07/02/18 23:50 36.6 C 67 20 148/81 H 93
[2018-07-03] MEDS: CARVEDILOL 25 MG TAB PO SCH ×2 (12:20→23:04)
--- NOTE | 2018-07-03 13:39 | Cardiology Progress Note ---
Date of Service July 03, 2018 Assessment & Plan (1) Apical variant hypertrophic cardiomyopathy: (2) CKD (chronic kidney disease), stage III: (3) Hypertension: (4) History of ventricular tachycardia: (5) Atrial flutter, paroxysmal: QT interval on the EKG has lengthened over 500. I will reduce the dose of sotalol to 40 mg twice daily. I suspect that by tomorrow the patient will be ready for discharge. Subjective No complaints today. Patient had an uneventful night. Review of Systems Review of Systems: All systems reviewed & are unremarkable except as noted in HPI & below Unchanged Physical Exam Physical Exam: General: no acute distress and stated age Head: normocephalic, no masses, lesions, tenderness or abnormalities Eyes: conjunctiva are pink and non-injected, sclera clear Neck: supple, no adenopathy, no bruits, normal jugular venous pulse, no hepatojugular reflux Chest: normal shape and normal respiratory effort Lungs: clear to auscultation and percussion Cardiac Exam: - regular rate & rhythm, no murmurs gallops or rubs - normal S1, normal S2 Pulses: 2(+) throughout Abdomen: abdomen soft, non-tender, no abnormal masses and no hepatosplenomegaly Musculoskeletal: no gait disturbance, no joint inflammation, no deforming arthritis Extremities: no edema and no cyanosis Neuro: grossly normal exam Results & Data Vital Signs (Past 12 Hours) Vital Signs Temp Pulse Pulse Resp BP BP Pulse Ox 07/03/18 11:38 36.7 C 73 20 135/83 93 07/03/18 07:27 36.7 C 60 20 137/84 97 07/03/18 07:00 60 07/03/18 03:00 36.6 C 55 L 20 137/80 95 Laboratory Results Laboratory Results - last 24 hr 07/03/18 07/03/18 07:44 07:44 WBC 6.69 RBC 4.45 Hgb 14.4 Hct 41.8 MCV 93.9 MCH 32.4 MCHC 34.4 RDW Std Deviation 52.8 H RDW Coeff of Joi 15.3 H Plt Count 163 MPV 11.1 H Immature Gran % (Auto) 0.1 Neut % (Auto) 59.7 Lymph % (Auto) 23.8 [place] % (Auto) 11.4 Eos % (Auto) 4.6 Baso % (Auto) 0.4 Immature Gran # (Auto) 0.01 Neut # (Auto) 3.99 Lymph # (Auto) 1.59 [place] # (Auto) 0.76 H Eos # (Auto) 0.31 Baso # (Auto) 0.03 Sodium 143 Potassium 4.1 Chloride 109 H Carbon Dioxide 27 Anion Gap 7.0 BUN 26 H Creatinine 1.27 H Est Cr Clr Drug Dosing 31.4 Est GFR ( Amer) 44.3 Est GFR (Non-Af Amer) 38.2 BUN/Creatinine Ratio 20.6 H Glucose 85 Calcium 9.5 Medications Administered Current Inpatient Medications Acetaminophen (Tylenol) 650 mg PO Q4H PRN PRN Reason: Pain or Fever Stop: 07/30/18 18:29 Apixaban (Eliquis) 5 mg PO BID [facility] Stop: 07/31/18 20:59 Last Admin: 07/03/18 08:01 Dose: 5 mg Documented by: Aspirin (Ecotrin Ectab) 81 mg PO DAILY [facility] Stop: 07/31/18 08:59 Last Admin: 07/03/18 08:02 Dose: 81 mg Documented by: Carvedilol (Coreg) 25 mg PO BID@1100,2300 [facility] Stop: 07/30/18 22:59 Last Admin: 07/03/18 12:20 Dose: 25 mg Documented by: Lisinopril (Zestril) 10 mg PO DAILY [facility] Stop: 07/31/18 08:59 Last Admin: 07/03/18 08:01 Dose: 10 mg Documented by: Magnesium Oxide (Mag-Ox) 400 mg PO DAILY [facility] Stop: 07/31/18 08:59 Last Admin: 07/03/18 08:02 Dose: 400 mg Documented by: Multivitamins/Minerals (Multivitamin W/ Minerals Tab) 1 tab PO DAILY [facility] Stop: 07/31/18 08:59 Last Admin: 07/03/18 08:02 Dose: 1 tab Documented by: Sotalol HCl (Betapace) 40 mg PO BID [facility] Stop: 08/02/18 20:59 Vitamin D (Vitamin D3) 1,000 units PO DAILY [facility] Stop: 07/31/18 08:59 Last Admin: 07/03/18 08:02 Dose: 1,000 units Documented by:
[2018-07-04] MEDS: CEROVITE ADV FORMULA TAB PO SCH (08:01)
[2018-07-04] MEDS: CHOLECALCIFEROL 1,000 UNITS TAB PO SCH (08:01)
[2018-07-04] MEDS: ASPIRIN 81 MG ECTAB PO SCH (08:02)
[2018-07-04] MEDS: SOTALOL HCL 80 MG TAB PO SCH (08:02)
[2018-07-04] MEDS: MAGNESIUM OXIDE 400 MG TAB PO SCH (08:02)
[2018-07-04] MEDS: APIXABAN 5 MG TABLET PO SCH (08:03)
[2018-07-04] MEDS: LISINOPRIL 10 MG TAB PO SCH (08:03)
[2018-07-04] MEDS: CARVEDILOL 25 MG TAB PO SCH (14:02)
--- NOTE | 2018-07-04 15:18 | Cardiology Progress Note ---
Date of Service July 04, 2018 Assessment & Plan (1) Atrial flutter, paroxysmal: (2) Apical variant hypertrophic cardiomyopathy: (3) CKD (chronic kidney disease), stage III: EKG performed this morning reveals improved corrected QT interval to 474 ms, compared to 507 yesterday. Patient has deep T wave inversions in the precordial leads consistent with her history of apical variant hypertrophic cardiomyopathy. The patient's device check performed earlier this hospital stay confirmed the pr esence of brief episodes of atrial flutter. Based on her moderate chronic kidney disease with calculated GFR in the mid 30 mL/min/m, sotalol 40 mg twice daily appears to be the appropriate dose for her. In terms of stroke prophylaxis, as noted her risk factors addict high risk of cardio embolic stroke, and therefore anticoagulation is recommended. She has been tolerating Eliquis 5 mg twice daily. Her creatinine is less than 1.5, so even though she is 82 years old, since her creatinine is less than 1.5 and she is over 60 kg, 5 mg 2 times per day is still the appropriate dose for her. If h er creatinine reaches to 1.5 mg/dLhold in the future, will need to reduce her dose to 2.5 mg twice daily. If Eliquis appears to be too expensive, I think she would be a good candidate for Coumadin. Patient stable for discharge from a cardiac perspective. Plan for outpatient follow-up with cardiology. Dr. Jerrod Hernández is her primary executive producer. Recommend follow-up in 1-3 weeks. Subjective Chief complaint: Follow-up palpitations Subjective: Patient feeling well. She has been ambulating the bathroom. Denies any lightheadedness or dizziness. Telemetry reveals stable sinus rhythm with atrial pacing and no recurrent arrhythmia. Review of Systems Review of Systems: All systems reviewed & are unremarkable except as noted in HPI & below Physical Exam Physical Exam: General: no acute distress and stated age Eyes: conjunctiva are pink and non-injected, sclera clear Neck: normal jugular venous pulse, no hepatojugular reflux Chest: normal shape and normal respiratory effort Lungs: clear to auscultation and percussion Cardiac Exam: - regular heart sounds, no murmurs, rubs, or gallops, no jugular venous distention Abdomen: abdomen soft, non-tender, no abnormal masses and no hepatosplenomegaly Musculoskeletal: no gait disturbance, no weakness Extremities: no edema and no cyanosis Neuro:awake, coversant, follows commands, no focal motor deficits Psych: appropriate affect and insight. Results & Data Vital Signs (Past 12 Hours) Vital Signs Temp Pulse Pulse Resp BP BP Pulse Ox 07/04/18 15:06 60 07/04/18 11:58 36.4 C L 71 20 124/82 93 07/04/18 11:50 162/104 H 07/04/18 07:41 65 07/04/18 07:28 36.8 C 59 L 18 143/84 H 95 07/04/18 04:00 36.6 C 63 18 111/72 95
--- NOTE | 2018-07-04 15:18 | Hospitalist Progress Note ---
Date of Service July 04, 2018 Assessment & Plan (1) Palpitations: Atrial flutter, paroxysmal (symptoms as intermittent palpitations described as skipped beats); Presence of Pacemaker -Pt with hx ventricular tachycardia s/p ICD. Pt presented with c/o intermittent palpitations described as skipped beats with associated sensation of needing to catch her breath. Denies any further episodes during ER course. Denies CP, dizziness. Denies current SOB. In ER afebrile, vitals stable. No leukocytosis, no significant electrolyte abnormality. -normal TSH and no pulmonary embolism on admission CTA -Device interrogation on 07/01/18- Episodes of Atrial flutter lasting for <1 minute per verbal report by tech. No events noted on monitor -Echo- EF 60-65%, Apical hypertrophy, Left atrium, right atrial- Moderately dilated, Grade II diastolic dysfunction -patient was continued on home dose carvedilol 25 mg BID and started by cardiology service on sotalol 80 mg PO BID by cardiology on 07/01/18; QTC mildly prolonged as 507 on 07/03/18. Discussed with cardiology service to reduce sotalolol as 40 mg BID starting on 07/03/18 (Patient already got the 07/03/18 AM dose of 80 mg). QTC on 07/04/18 is [address] Mckoy recommends sotalol 40 mg BID as the discharge dose -CHADVASC Score - 6. Patient was started on Eliquis 5 mg BID on by cardiology. Cardiology service Dr. Mckoy recommends that discharge dosing of Eliquis as 2.5 mg BID based on patient's renal function and age Discharge to home Patient has prescriptions of Sotalol 40 mg twice a day and Eliquis 2.5 mg twice a day sent electronically to [facility] at [address] [place] [id number] 07/10/2018 11:00 AM Provider Valentine Daley MD Department Internal Medicine [facility] 07/16/2018 3:00 PM Provider Logan Vargas PA-C Department Cardiology, [facility] (2) CAD (coronary artery disease): Hx minimal nonobstructive CAD per cardiac cath in 2012 No CP -Trop x 2 negative -continue aspirin, carvedilol (3) Multiple pulmonary nodules: CT CHEST: Multiple bilateral scattered solid pulmonary nodules are noted which includes a cluster of nodules about the left upper lobe measuring up to 8 x 6 mm with an adjacent area of bronchial mucous plugging. 3 month follow-up CT of the chest recommended to further evaluate. -Recommend repeat CT chest in 3 months (4) History of ventricular tachycardia: S/P ICD -ICD/pacer interrogation done on 07/01 as above (5) Diastolic CHF, chronic: Hx echo 2013: EF: 60-65%, normal wall motion, apical hypertrophy, mild TR -Euvolemic -On lasix prn (Barely used it in past) (6) CKD (chronic kidney disease), stage III: Baseline Crretainine is around 1.3 renal function is stable (7) History of stroke: -continue aspirin (8) History of pulmonary embolism: Not on anticoagulation no pulmonary embolism on this admission CTA (9) Hypertension: Stable -continue carvedilol, lisinopril (10) Dyslipidemia: -continue fish oil DVT Prophylaxis -Heparin SQ while inpatient Discharge diagnosis Atrial flutter, paroxysmal (symptoms as intermittent palpitations described as skipped beats); Presence of Pacemaker, CKD (chronic kidney disease) stage III, Multiple pulmonary nodules Discharge Instructions Discharge to home Patient has prescriptions of Sotalol 40 mg twice a day and Eliquis 2.5 mg twice a day sent electronically to her [facility] pharmacy at [address] [place] [id number] 07/10/2018 11:00 AM Provider Valentine Daley MD Department Internal Medicine [facility] 07/16/2018 3:00 PM Provider Logan Vargas PA-C Department Cardiology, [facility] 09/30/2018 9:00 AM Provider Remote Cardiac Devices Department Cardiology, [facility] CT CHEST: Multiple bilateral scattered solid pulmonary nodules are noted which includes a cluster of nodules about the left upper lobe measuring up to 8 x 6 mm with an adjacent area of bronchial mucous plugging. 3 month follow-up CT of the chest recommended to further evaluate. -Recommend repeat CT chest in 3 months Subjective Patient denies chest pain. denies shortness of breath. no abdominal pain. no vomiting. has been ambulatory. no lightheadedness. no dizziness Physical Exam Constitutional: WD/WN, vitals as above Eyes: PERRL, conjunctivae normal, anicteric sclerae ENMT: external ear and nose normal, oropharynx normal Neck: trachea midline, no thyromegaly normal visual inspection Respiratory: normal respiratory effort, lungs clear to auscultation Cardiovascular: Rate/Rhythm: regular rhythm and + bradycardic Gastrointestinal (Abdomen): normal bowel sounds, soft, nontender, no hepatosplenomegaly Musculoskeletal: Head/Neck/Chest: normocephalic and head atraumatic Neurologic: PERRL, EOMI, accommodation nl, no face palsy, no dysarthria CN's II-XI intact bilaterally Psychiatric: A+Ox3, euthymic affect Results & Data Vital Signs (Past 12 Hours) Vital Signs Temp Pulse Pulse Resp BP BP Pulse Ox 07/04/18 15:06 60 07/04/18 11:58 36.4 C L 71 20 124/82 93 07/04/18 11:50 162/104 H 07/04/18 07:41 65 07/04/18 07:28 36.8 C 59 L 18 143/84 H 95 07/04/18 04:00 36.6 C 63 18 111/72 95
--- NOTE | 2018-07-04 15:23 | Discharge Summary ---
Date of Service July 04, 2018 Admission HPI Per Admitting Provider Pt is 88 y/o F with PMH apical cardiomyopathy, diastolic heart failure, ventricular tachycardia s/p ICD, minimal nonobstructive CAD per cath 2012, labile HTN, CKD III, h/o intermittent palpitations, h/o CVA, presented to ER with complaint of palpitations. Patient states this afternoon was sitting when she started with palpitations which lasted for approximately 20-25 minutes. States when she had the palpitations described as skipped beats and she felt like had to take a deep breath, denies any associated dizziness or chest pain. Palpitations resolved and then returned again and palpitations have been intermittent until ER arrival. Denies any current SOB or CP. Patient denies any ICD firing. 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 Patient denies missing her medications. Denies fever/chills, diaphoresis, N/V/D/C, MOREJON, dizziness, syncope, vision changes, neck pain, CP, orthopnea, cough, sore throat, choking, otalgia, rhinorrhea, abdominal pain, paresthesias, weakness, extremity weakness, extremity edema, rashes, urinary symptoms. Admission Exam Per Admitting Provider General: no distress, WDWN Head: normocephalic, atraumatic Eyes: PERRL, EOM's intact, conjunctiva non-injected, anicteric ENT: normal inspection external ears, nose, mucous membranes moist Neck: supple, trachea midline, non-tender Lungs: clear, no respiratory distress, no wheezing/rhonchi/rales CV: RRR, no murmur, no JVD, no pretibial edema Abd: normal BS, soft, non-tender Ext: no cyanosis, no calf tenderness Neuro: A&O x 3, no focal deficits noted, normal affect Skin: warm, dry Principal Diagnosis Atrial flutter, paroxysmal (symptoms as intermittent palpitations described as skipped beats); Presence of Pacemaker, CKD (chronic kidney disease) stage III, Multiple pulmonary nodules Discharge Exam Constitutional WD/WN, vitals as above Eyes PERRL, conjunctivae normal, anicteric sclerae ENMT external ear and nose normal, oropharynx normal Neck trachea midline, no thyromegaly normal visual inspection Respiratory normal respiratory effort, lungs clear to auscultation Cardiovascular Rate/Rhythm: regular rhythm and + bradycardic Gastrointestinal (Abdomen) normal bowel sounds, soft, nontender, no hepatosplenomegaly Musculoskeletal Head/Neck/Chest: normocephalic and head atraumatic Neurologic PERRL, EOMI, accommodation nl, no face palsy, no dysarthria CN's II-XI intact bilaterally Psychiatric A+Ox3, euthymic affect Discharge Data Allergies Allergy/AdvReac Type Severity Reaction Status Date / Time Penicillins Allergy Mild FACIAL Verified 06/30/18 15:14 SWELLING levofloxacin Allergy Unknown ? Verified 06/30/18 15:14 questionable tendon issues Consultations 06/30/18 17:01 ED Decision to Admit Stat 07/01/18 09:54 Consult Cardiology Routine Ordered Studies 06/30/18 16:08 CT angio chest PE protocol Stat Hospital Course (1) Palpitations: Atrial flutter, paroxysmal (symptoms as intermittent palpitations described as skipped beats); Presence of Pacemaker -Pt with hx ventricular tachycardia s/p ICD. Pt presented with c/o intermittent palpitations described as skipped beats with associated sensation of needing to catch her breath. Denies any further episodes during ER course. Denies CP, dizziness. Denies current SOB. In ER afebrile, vitals stable. No leukocytosis, no significant electrolyte abnormality. -normal TSH and no pulmonary embolism on admission CTA -Device interrogation on 07/01/18- Episodes of Atrial flutter lasting for <1 minute per verbal report by tech. No events noted on monitor -Echo- EF 60-65%, Apical hypertrophy, Left atrium, right atrial- Moderately dilated, Grade II diastolic dysfunction -patient was continued on home dose carvedilol 25 mg BID and started by cardiology service on sotalol 80 mg PO BID by cardiology on 07/01/18; QTC mildly prolonged as 507 on 07/03/18. Discussed with cardiology service to reduce sotalolol as 40 mg BID starting on 07/03/18 (Patient already got the 07/03/18 AM dose of 80 mg). QTC on 07/04/18 is [address] Mckoy recommends sotalol 40 mg BID as the discharge dose -CHADVASC Score - 6. Patient was started on Eliquis 5 mg BID on by cardiology. Cardiology service Dr. Mckoy recommends that discharge dosing of Eliquis as 2.5 mg BID based on patient's renal function and age Discharge to home Patient has prescriptions of Sotalol 40 mg twice a day and Eliquis 2.5 mg twice a day sent electronically to her [facility] at [address] [place] [id number] 07/10/2018 11:00 AM Provider Valentine Daley MD Department Internal Medicine [facility] 07/16/2018 3:00 PM Provider Logan Vargas PA-C Department Cardiology, [facility] (2) CAD (coronary artery disease): Hx minimal nonobstructive CAD per cardiac cath in 2012 No CP -Trop x 2 negative -continue aspirin, carvedilol (3) Multiple pulmonary nodules: CT CHEST: Multiple bilateral scattered solid pulmonary nodules are noted which includes a cluster of nodules about the left upper lobe measuring up to 8 x 6 mm with an adjacent area of bronchial mucous plugging. 3 month follow-up CT of the chest recommended to further evaluate. -Recommend repeat CT chest in 3 months (4) History of ventricular tachycardia: S/P ICD -ICD/pacer interrogation done on 07/01 as above (5) Diastolic CHF, chronic: Hx echo 2013: EF: 60-65%, normal wall motion, apical hypertrophy, mild TR -Euvolemic -On lasix prn (Barely used it in past) (6) CKD (chronic kidney disease), stage III: Baseline Crretainine is around 1.3 renal function is stable (7) History of stroke: -continue aspirin (8) History of pulmonary embolism: Not on anticoagulation no pulmonary embolism on this admission CTA (9) Hypertension: Stable -continue carvedilol, lisinopril (10) Dyslipidemia: -continue fish oil DVT Prophylaxis -Heparin SQ while inpatient Discharge diagnosis Atrial flutter, paroxysmal (symptoms as intermittent palpitations described as skipped beats); Presence of Pacemaker, CKD (chronic kidney disease) stage III, Multiple pulmonary nodules Discharge Instructions Discharge to home Patient has prescriptions of Sotalol 40 mg twice a day and Eliquis 2.5 mg twice a day sent electronically to her [facility] at [address] [place] [phone] 07/10/2018 11:00 AM Provider Valentine Daley MD Department Internal Medicine [facility] 07/16/2018 3:00 PM Provider Logan Vargas PA-C Department Cardiology, [facility] 09/30/2018 9:00 AM Provider Remote Card[employer] Devices Department Cardiology, [facility] CT CHEST: Multiple bilateral scattered solid pulmonary nodules are noted which includes a cluster of nodules about the left upper lobe measuring up to 8 x 6 mm with an adjacent area of bronchial mucous plugging. 3 month follow-up CT of the chest recommended to further evaluate. -Recommend repeat CT chest in 3 months Total Time Total Time Spent Total Time Spent (In Minutes): 40 minutes Total Time Includes: Examination of the Patient, Discharge Planning, Medication Reconciliation and Communication With Other Providers Discharge Plan Discharge Items Patient Disposition: Home - Self-Care Reason For Visit: PALPITATIONS Discharge Diagnosis: Atrial flutter, paroxysmal (symptoms as intermittent palpitations described as skipped beats); Presence of Pacemaker, CKD (chronic kidney disease) stage III, Multiple pulmonary nodules Condition: Good Discharge Goals: Improve disease control Activity: Resume your previous activity Non-emergency contact: Primary Care Provider and Hub Borer Call non-emergency contact if: you have any medication questions Follow-up/Referrals: Cherry Alas MD [Primary Care Provider] - Diet: Regular Addtl Provider Instructions: Discharge to home Patient has prescriptions of Sotalol 40 mg twice a day and Eliquis 2.5 mg twice a day sent electronically to her [facility] at [address] [place] [phone] 07/10/2018 11:00 AM Provider Valentine Daley MD Department Internal Medicine [facility] 07/16/2018 3:00 PM Provider Logan Vargas PA-C Department Cardiology, [facility] 09/30/2018 9:00 AM Provider Remote Cardiac Devices Department Cardiology, [facility] CT CHEST: Multiple bilateral scattered solid pulmonary nodules are noted which includes a cluster of nodules about the left upper lobe measuring up to 8 x 6 mm with an adjacent area of bronchial mucous plugging. 3 month follow-up CT of the chest recommended to further evaluate. -Recommend repeat CT chest in 3 months Prescriptions: New sotalol 80 mg Tablet 40 mg PO BID 30 Days Qty: 30 RF: 0 Eliquis 2.5 mg Tablet 2.5 mg PO BID 30 Days Qty: 60 RF: 0 Continued carvedilol [Coreg] 25 mg Tablet 25 mg PO BID RF: 0 aspirin [Aspir-81] 81 mg Tablet,Delayed Release (Dr/Ec) 81 mg PO DAILY RF: 0 lisinopril 10 mg Tablet 10 mg PO DAILY RF: 0 Adult One Daily Multivitamin 0.4 mg Tablet 1 tab PO DAILY RF: 0 [id number] [krill oil] 1,205-008-74-80 mg Capsule 1 tab PO DAILY RF: 0 magnesium oxide 400 mg magnesium Tablet 400 mg PO DAILY RF: 0 cholecalciferol (vitamin D3) 1,000 unit Tablet 1,000 unit PO DAILY RF: 0 Stand-Alone Forms: [facility] Discharge Orders: Discharge Order (Routine); Ordered 07/04/18 Ordered By: Camacho Jones Admission Data Admit Date/Time: 07/02/18 15:44 Attending Provider: Camacho Jones Admit Provider: Esther Dominique Primary Care Provider: Cherry Alas Other Providers: Esther Dominique ; Jose Guadalupe Broussard Service: Telemetry Medical
[2018-07-04] MEDS ORDERED: APIXABAN 2.5 MG TAB PO SCH (21:00)
== END 2018-07-04 16:38 | disposition home or self-care (01) | DRG 309 ==
LOC: 2W 14:21 → ED 14:21 → 2W 18:18 → SUATTDRO 07-02 15:44